=== PATIENT | male | born 1955 | race Caucasian/White ===

== ENCOUNTER → 2016-07-05 | Outpatient (CLI) | payer BC, OTHER | LOC: M LAB 14:13 | PROVIDERS: ATTEND Family Medicine | DX: E03.9 Hypothyroidism, unspecified (principal) ==

== ENCOUNTER 2017-02-02 08:45 | Outpatient (CLI) | payer BC, OTHER ==
[~2017-02-02] VITALS: Ht 185.4 cm; Wt 109.5 kg
[~2017-02-02 08:45] MED LIST: ALLO10TA PO; ASPI1TAB PO; ATOR80TA59 PO; DUTA1CAP PO; LEVO75TA4 PO; LYRI75CA PO; MULT1TAB10 PO; STOO100C PO
[2017-02-02] MEDS ORDERED: NS 1,000 ML IV ONE (09:00)
[2017-02-02] MEDS ORDERED: LIDOCAINE 2% INJ 100 MG/5 ML SDV (FOR ANES.) As Ordered ONE (09:21)
[2017-02-02] MEDS ORDERED: PROPOFOL 200 MG/20 ML VIAL As Ordered ONE (09:21)
--- NOTE | 2017-02-02 09:38 | ROOR ---
Patient Name: Brett Marquez Procedure Date: 02/02/2017 9:18 AM Date of : 1955 Age: 61 Room: [facility] Gender: Male Note Status: Finalized Procedure: Colonoscopy Indications: Screening for colorectal malignant neoplasm Providers: Woody BAILEY MD Referring MD: BAN CORONADO MD Requesting Provider: Medicines: Monitored Anesthesia Care Complications: No immediate complications. Procedure: Pre-Anesthesia Assessment: - The heart rate, respiratory rate, oxygen saturations, blood pressure, adequacy of pulmonary ventilation, and response to care were monitored throughout the procedure. The Colonoscope was introduced through the anus and advanced to the cecum, identified by appendiceal orifice and ileocecal valve. The colonoscopy was performed without difficulty. The patient tolerated the procedure well. The quality of the bowel preparation was good. Findings: The perianal and digital rectal examinations were normal. (Exam: Complete, Prep: Good or Excellent.) A segmental area of mild melanosis was found in the entire colon. The entire examined colon appeared normal on direct and retroflexion views. Impression: - (Exam: Complete, Prep: Good or Excellent.) - The entire examined colon is normal on direct and retroflexion views. - No specimens collected. Recommendation: - Repeat colonoscopy in 10 years for screening purposes. Woody Bailey MD Woody BAILEY MD 02/02/2017 9:38:19 AM This report has been signed electronically. Number of Addenda: 0 Note Initiated On: 02/02/2017 9:18 AM Estimated Blood Loss: Estimated blood loss: none.
[2017-02-02 09:56] VITALS: BP 116/80
== END 2017-02-02 10:02 | disposition home or self-care (01) ==
LOC: M OPP 08:45
PROVIDERS: ATTEND Internal Medicine Gastroenterology
DX: Z12.11 Encounter for screening for malignant neoplasm of colon (principal); K63.89 Other specified diseases of intestine; E78.5 Hyperlipidemia, unspecified; G43.909 Migraine, unspecified, not intractable, without status migrainosus; E03.9 Hypothyroidism, unspecified; M10.9 Gout, unspecified; M79.2 Neuralgia and neuritis, unspecified

== ENCOUNTER → 2018-05-16 | Outpatient (CLI) | payer BC, OTHER, MEDICARE ==
[2018-05-16 14:26] LABS: ALBUMIN 4.1 GM/DL (3.2-5.2); ALBUMIN/GLOBULIN RATIO 1.41 (1.00-1.93); ALKALINE PHOSPHATASE 80 U/L (45-117); ALT/SGPT 41 U/L (12-78); ANION GAP 5 MEQ/L (8-16); AST/SGOT 27 U/L (7-37); BILIRUBIN,TOTAL 0.6 MG/DL (0.2-1.0); BLOOD UREA NITROGEN 17 MG/DL (7-18); CALCIUM LEVEL 8.5 MG/DL (8.8-10.2); CARBON DIOXIDE LEVEL 29 MEQ/L (21-32); CHLORIDE LEVEL 108 MEQ/L (98-107); CHOLESTEROL LEVEL 153 MG/DL (<200); CHOLESTEROL RISK RATIO 2.684 (<5); CREATININE FOR GFR 0.99 MG/DL (0.70-1.30); GLOMERULAR FILTRATION RATE > 60.0 (>49); GLUCOSE, FASTING 91 MG/DL (70-100); HDL CHOLESTEROL 57 MG/DL (>40); LDL CHOLESTEROL 82 MG/DL (<100); NON-HDL-C 96 MG/DL; POTASSIUM SERUM 4.7 MEQ/L (3.5-5.1); SODIUM LEVEL 142 MEQ/L (136-145); TRIGLYCERIDES LEVEL 72 MG/DL (<150)
== END ==
LOC: M LAB 10:20
DX: E78.1 Pure hyperglyceridemia (principal); M1A.9XX0 Chronic gout, unspecified, without tophus (tophi); E03.9 Hypothyroidism, unspecified
CPT/HCPCS: 84443

== ENCOUNTER → 2018-07-12 | Outpatient (CLI) | payer MEDICARE, BC ==
--- NOTE | 2018-07-12 10:40 | REP ---
LEFT WRIST, FOUR VIEWS: HISTORY: Injury. There is no acute fracture or dislocation. There is narrowing of the radiocarpal and 1st carpal metacarpal joint space. Osteophytes are present at the 1st the carpal metacarpal joint space. The remaining joint spaces are normal in appearance. IMPRESSION: Degenerative change as described above. Electronically Signed by Tuan Vernon MD 07/12/2018 10:42 A
== END ==
LOC: M SMT 09:24
PROVIDERS: ATTEND Family Medicine
DX: M18.12 Unilateral primary osteoarthritis of first carpometacarpal joint, left hand (principal); M25.742 Osteophyte, left hand; S69.92XA Unspecified injury of left wrist, hand and finger(s), initial encounter; X58.XXXA Exposure to other specified factors, initial encounter; Y92.9 Unspecified place or not applicable
CPT/HCPCS: 17110; 73110; G0463

== ENCOUNTER 2019-03-24 12:54 | Emergency (ER) | payer MEDICARE, BC, OTHER ==
[~2019-03-24] VITALS: Ht 185.4 cm; Wt 113.1 kg
[~2019-03-24 12:54] MED LIST changes: -ASPI1TAB PO; +ASPI81TA26 PO; +MM S100C PO; -STOO100C PO
[2019-03-24] MEDS ORDERED: NS 1,000 ML IV SCH (13:15)
[2019-03-24] MEDS ORDERED: ONDANSETRON 4MG/2ML VIAL (J2405) As Ordered ONE (13:22)
[2019-03-24] MEDS ORDERED: MORPHINE 4 MG/ML 1ML VIAL/SYRINGE (J2270) As Ordered ONE (13:22)
[2019-03-24] MEDS ORDERED: ONDANSETRON 4MG/2ML VIAL (J2405) IV ONE (13:30)
[2019-03-24] MEDS ORDERED: MORPHINE 4 MG/ML 1ML VIAL/SYRINGE (J2270) IV PRN (13:30)
[2019-03-24 13:43] LABS: BASO % 0.6 % (0.0-1.0); EOS # 0.1 10^3/uL (0.0-0.5); EOS % 2.1 % (0.0-3.0); HEMATOCRIT 44.6 % (42.0-52.0); HEMOGLOBIN 15.4 g/dl (13.5-17.5); LYMPH % 32.4 % (24.0-44.0); MEAN CORPUSCULAR HGB CONC 34.5 g/dl (32.0-36.5); MEAN CORPUSCULAR VOLUME 95.5 fl (80.0-96.0); MONO # 0.6 10^3/uL (0.0-0.8); MONO % 9.1 % (0.0-5.0); NEUTROPHILS # 3.5 10^3/uL (1.5-8.5); NEUTROPHILS % 55.5 % (36.0-66.0); PLATELET COUNT, AUTOMATED 156 10^3/uL (150-450); RED BLOOD COUNT 4.67 10^6/uL (4.30-6.10); WHITE BLOOD COUNT 6.2 10^3/uL (4.0-10.0)
[2019-03-24 13:56] LABS: INR 1.15; PROTHROMBIN TIME 14.4 SECONDS (11.8-14.0)
--- NOTE | 2019-03-24 14:08 | REP ---
CT of the abdomen pelvis without IV and oral contrast for right flank pain: There are no comparisons. There are no renal calculi. There is mild right hydronephrosis and hydroureter. There is a 5 mm calculus in the mid right ureter at the L4/L5 level. There are no bladder calculi. There is no left ureteral calculus. There are no bladder calculi. The visualized lung felix are unremarkable. The unenhanced hepatic parenchyma, gallbladder, pancreas, spleen, adrenals, abdominal aorta, bowel and mesentery are unremarkable except for a 3.4 cm hypodensity medially in the right lobe of the liver, likely a cyst. Pelvis: The pelvic bowel loops are unremarkable. There is no ascites or adenopathy. The bladder is unremarkable. There is degenerative disc disease at L5 S1. Impression: There is a 5 ml calculus in the mid right ureter at the L4-5 level. There is mild right hydronephrosis. There is degenerative disc disease in the lumbar spine at L5 S1. Otherwise, negative CT of the abdomen and pelvis except for an hepatic hypodensity, likely a cyst. Electronically Signed by Jaden Houston MD 03/24/2019 01:59 P
[2019-03-24 14:12] LABS: ALBUMIN 4.2 GM/DL (3.2-5.2); BILIRUBIN,DIRECT 0.3 MG/DL (0.0-0.2); BILIRUBIN,TOTAL 0.9 MG/DL (0.2-1.0)
[2019-03-24] MEDS ORDERED: NS 1,000 ML IV ONE (14:15)
[2019-03-24] MEDS ORDERED: PERC5TAB12 PO (14:45)
[2019-03-24] MEDS ORDERED: FLOM0.4C39 PO (14:46)
[2019-03-24] MEDS ORDERED: KETOROLAC 30 MG/ML VIAL (J1885) IV ONE (15:00)
[2019-03-24] MEDS ORDERED: CIPR-249 PO (15:24)
[2019-03-24 15:30] VITALS: BP 137/94
[2019-03-24] MEDS ORDERED: CIPROFLOXACIN 500 MG TAB PO ONE (15:30)
--- NOTE | 2019-03-25 00:43 | ECGEPIP ---
[facility] - ED Test Date: 2019-03-24 Pat Name: JALIL GRANADOS Department: Room: - Gender: Male Vp Site: : 1955 Requested By: Edna Anderson Order Number: [id number] Reading MD: Woody Kelsey Measurements Intervals [place] Rate: 45 P: 42 NE: 191 QRS: -9 QRSD: 109 T: -2 QT: 449 QTc: 389 Interpretive Statements SINUS BRADYCARDIA WITH SINUS ARRHYTHMIA Comparison tracing not on file Electronically Signed on 03-25-2019 0:43:23 EDT by Woody Kelsey
== END 2019-03-24 15:48 | disposition home or self-care (01) ==
LOC: M ED 12:54
DX: N20.1 Calculus of ureter (principal); E78.5 Hyperlipidemia, unspecified; N40.0 Benign prostatic hyperplasia without lower urinary tract symptoms; M10.9 Gout, unspecified; Z79.899 Other long term (current) drug therapy; Z79.82 Long term (current) use of aspirin
CPT/HCPCS: 74176; 80047; 80076; 81001; 83605; 83690; 85025; 85610; 93005; 93041; 96361; 96374; 96375; 99285; J1885; J2270; J2405

== ENCOUNTER → 2019-08-01 | Outpatient (REF) | payer MEDICARE, BC, OTHER ==
[~2019-08-01] MED LIST changes: +CIPR-249 PO; -DUTA1CAP PO; +DUTA1CAP2 PO; +FLOM0.4C39 PO; +PERC5TAB12 PO
== END ==
LOC: M SFHCPLAZ 09:35
PROVIDERS: ATTEND Family Medicine
DX: L82.0 Inflamed seborrheic keratosis (principal)

== ENCOUNTER → 2020-01-01 | Outpatient (REF) | payer MEDICARE, OTHER ==
[2020-01-01 13:45] LABS: ALBUMIN 3.8 GM/DL (3.2-5.2); ALT/SGPT 34 U/L (12-78); BILIRUBIN,TOTAL 0.6 MG/DL (0.2-1.0); BLOOD UREA NITROGEN 15 MG/DL (7-18); CALCIUM LEVEL 8.8 MG/DL (8.8-10.2); CARBON DIOXIDE LEVEL 26 MEQ/L (21-32); CHLORIDE LEVEL 110 MEQ/L (98-107); CHOLESTEROL LEVEL 159 MG/DL (<200); CHOLESTEROL RISK RATIO 3.117 (<5); CREATININE FOR GFR 0.98 MG/DL (0.70-1.30); GLOMERULAR FILTRATION RATE > 60.0 (>49); GLUCOSE, FASTING 104 MG/DL (70-100); HDL CHOLESTEROL 51 MG/DL (>40); LDL CHOLESTEROL 85 MG/DL (<100); NON-HDL-C 108 MG/DL; POTASSIUM SERUM 4.4 MEQ/L (3.5-5.1); SODIUM LEVEL 143 MEQ/L (136-145); TOTAL PROTEIN 6.9 GM/DL (6.4-8.2); TRIGLYCERIDES LEVEL 115 MG/DL (<150)
== END ==
LOC: M PLALAB 08:06
PROVIDERS: ATTEND Family Medicine
DX: E78.1 Pure hyperglyceridemia (principal); M1A.9XX0 Chronic gout, unspecified, without tophus (tophi); E03.9 Hypothyroidism, unspecified

== ENCOUNTER → 2020-03-08 | Outpatient (CLI) | payer MEDICARE, OTHER ==
[2020-03-08 14:39] LABS: FREE T4 1.09 NG/DL (0.76-1.46); THYROID STIMULATING HORMONE 2.51 uIU/ML (0.358-3.740)
[2020-03-08 15:04] LABS: HEMOGLOBIN A1c 5.6 %
== END ==
LOC: M PLALAB 09:56
PROVIDERS: ATTEND Family Medicine
DX: R73.02 Impaired glucose tolerance (oral) (principal); E03.9 Hypothyroidism, unspecified

== ENCOUNTER → 2020-06-25 | Outpatient (CLI) | payer MEDICARE, OTHER ==
--- NOTE | 2020-06-25 15:23 | REPPI ---
INDICATION: MASS OF THE LEFT AXILLA COMPARISON: None. TECHNIQUE: PA and lateral. FINDINGS: The mediastinum and cardiac silhouette are normal. The lung felix are clear and without acute consolidation, effusion, or pneumothorax. The skeletal structures are intact and normal. IMPRESSION: No acute cardiopulmonary process. <Electronically signed by René Cruz > 06/25/20 [id number]
== END ==
LOC: M PLAIMG 14:53
PROVIDERS: ATTEND Family Medicine
DX: R22.32 Localized swelling, mass and lump, left upper limb (principal); Z23 Encounter for immunization
CPT/HCPCS: 36415; 71046; 85025; 90471; 90715; G0463

== ENCOUNTER → 2020-06-25 | Outpatient (REF) | payer MEDICARE, OTHER ==
[2020-06-25 17:40] LABS: BASO # 0.1 10^3/uL (0.0-0.2); BASO % 1.6 % (0.0-1.0); EOS # 0.2 10^3/uL (0.0-0.5); EOS % 2.9 % (0.0-3.0); HEMATOCRIT 46.4 % (42.0-52.0); HEMOGLOBIN 15.2 g/dl (13.5-17.5); LYMPH # 1.6 10^3/uL (1.5-5.0); LYMPH % 29.7 % (24.0-44.0); MEAN CORPUSCULAR HGB CONC 32.8 g/dl (32.0-36.5); MEAN CORPUSCULAR VOLUME 94.7 fl (80.0-96.0); MONO # 0.6 10^3/uL (0.0-0.8); MONO % 10.7 % (0.0-5.0); NEUTROPHILS % 54.4 % (36.0-66.0); PLATELET COUNT, AUTOMATED 181 10^3/uL (150-450); WHITE BLOOD COUNT 5.5 10^3/uL (4.0-10.0)
== END ==
LOC: M SFHCPLAZ 14:50
PROVIDERS: ATTEND Family Medicine
DX: R22.32 Localized swelling, mass and lump, left upper limb (principal)

== ENCOUNTER → 2020-07-12 | Outpatient (CLI) | payer MEDICARE, BC, OTHER ==
--- NOTE | 2020-07-12 12:58 | REP ---
INDICATION: LOCALIZED SWELLING, MASS AND LUMP, LEFT UPPER LIMB. COMPARISON: None TECHNIQUE: Ultrasonographic evaluation over a palpable left axillary mass FINDINGS: Seen scanned over the region of interest there is a 3.8 x 3.4 x 4.1 cm sized mixed echo complex appearing fluid collection. IMPRESSION: Left axillary abnormality as described above. Etiology uncertain. Consider surgical consultation. <Electronically signed by Lokesh Tanner > 07/12/20 [id number]
== END ==
LOC: M RAD 11:41
PROVIDERS: ATTEND Family Medicine
DX: R22.32 Localized swelling, mass and lump, left upper limb (principal)

== ENCOUNTER → 2020-07-26 | Outpatient (CLI) | payer MEDICARE, BC, OTHER ==
[~2020-07-26] MED LIST changes: +GASTROGRAFIN SOLUTION 30ML (Q9963) As Ordered ONE; +ISOVUE-370 76% 100ML VIAL As Ordered ONE
[2020-07-26 10:59] LABS: BLOOD UREA NITROGEN 19 MG/DL (7-18); CREATININE FOR GFR 1.09 MG/DL (0.70-1.30); GLOMERULAR FILTRATION RATE > 60.0 (>49)
--- NOTE | 2020-07-26 12:34 | REPVR ---
PROCEDURE INFORMATION: Exam: CT Neck With Contrast Exam date and time: 07/26/2020 12:11 PM Age: 65 years old Clinical indication: Condition or disease; Cancer; Other: Lymphoma TECHNIQUE: Imaging protocol: Computed tomography images of the neck with intravenous contrast. Radiation optimization: All CT scans at this facility use at least one of these dose optimization techniques: automated exposure control; mA and/or kV adjustment per patient size (includes targeted exams where dose is matched to clinical indication); or iterative reconstruction. Contrast material: ISOVUE 370; Contrast volume: 100 ml; Contrast route: INTRAVENOUS (IV); COMPARISON: No relevant prior studies available. FINDINGS: Nasopharynx: Unremarkable. Oropharynx: Unremarkable. No significant tonsillar enlargement. Hypopharynx: Unremarkable. Larynx: Unremarkable. Normal epiglottis. Retropharyngeal space: Unremarkable. Submandibular/Parotid glands: Normal. Glands are normal in size. Thyroid: There is a 2 cm hypodense right thyroid lobe nodule. Lymph nodes: Unremarkable. No lymphadenopathy. Trachea: Visualized trachea is unremarkable. Lungs: Unremarkable as visualized. Bones/joints: There is degenerative disc disease and spondylosis at C5/6 and C6/7. There is multilevel facet hypertrophy.. Soft tissues: There is diffuse expansion of the left pectoralis musculature, with loss of tissue planes, incompletely imaged. IMPRESSION: Diffuse expansion of the left pectoralis musculature, with loss of tissue planes, incompletely imaged. This may reflect known lymphoma. Clinical correlation is recommended. COMMENTS: Consistent with the [employer]'s Incidental Findings Committee white paper (J Am Lily Radiol 2015): In patients aged 35 years and older with an incidental thyroid nodule equal to or greater than 1.[address], MRI or extrathyroidal US, further evaluation with dedicated thyroid US is recommended for patients with normal life expectancy and without comorbidities. For smaller nodules without suspicious features, no further evaluation or follow up is recommended. Electronically signed by: Anabella Martinez On 07/26/2020 12:34:41 PM
--- NOTE | 2020-07-26 12:46 | REP ---
INDICATION: LYMPHOMA. Chest wall mass. Probable neoplasm. COMPARISON: Comparison sonography 12 July 2020. No comparison chest CT.. TECHNIQUE: 100 mL of intravenous Isovue 370 is administered and helical scanning is acquired. 3 mm axial images re-formatted. Coronal and sagittal MPR images are provided. FINDINGS: Preliminary digital social service director radiograph is unremarkable. The lung felix are free of infiltrate, mass, pleural effusion or atelectasis. There is good opacification of the thoracic aorta and there is no evidence of aneurysm or dissection. The pulmonary arterial tree is unremarkable. There is no evidence of pleural or pericardial effusion. A small sliding-type hiatal hernia is noted. Fatty infiltration of the liver is visualized. There is a large infiltrative process in the left pectoralis muscle which is quite swollen. There is confluent left axillary lymphadenopathy. This is quite bulky. The confluent adenopathy measures up to 14 cm in oblique craniocaudal span by 6-7 cm anterior to posterior by 9.5 cm right to left. Similar dimensions are noted in the infiltrated left pectoralis major and minor muscles. The subclavian artery courses through the superior margin of the confluent adenopathy. The subclavian vein is seen to be narrowed by the superior portion of the adenopathy. There is subcutaneous edema along the left lateral chest wall extending nearly to the diaphragm. No bony destructive lesion is seen. No apical lung neoplasm is appreciated. There is no evidence of right axillary or supraclavicular adenopathy. No upper abdominal adenopathy is seen. There is a 1.4 cm nodule in the right lobe of the thyroid gland. IMPRESSION: Bulky infiltrative confluent adenopathy in the left axilla. This process appears to infiltrate and involve the left pectoralis musculature. There is a lymphedema along the left lateral chest wall. Lymphoproliferative disease must be suspected versus other malignancy. 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 No other area of adenopathy is seen. A small sliding hiatal hernia is noted and fatty infiltration of the liver is seen. There is a low-density lesion in the right thyroid lobe consistent with a thyroid nodule, 1.4 cm. Findings were reviewed at the workstation with the referring surgeon Dr. Jennings. <Electronically signed by Abhay Lozoya > 07/26/20 [id number]
--- NOTE | 2020-07-26 13:09 | REP ---
INDICATION: LYMPHOMA. COMPARISON: Comparison CT study 24 March 2019.. TECHNIQUE: Contrast dose: 100 ML of Isovue [address] technique: Helical scanning is acquired and overlapping 1.5 mm and contiguous 3 mm axial images are reformatted. In addition, maximum intensity projection and multiplanar re-formation images are generated in sagittal and coronal imaging projections. FINDINGS: Digital preliminary salvage cutter radiograph demonstrates an unremarkable bowel gas pattern. There is considerable subcutaneous edema along the left flank in the extra abdominal soft tissues. No christopher fluid collection or focal mass lesion is seen. There is some dermal thickening. There is mild diffuse fatty infiltration of the liver. A small sliding-type hiatal hernia is seen. There is a cyst in the right lobe of the liver measuring 4.3 cm in greatest diameter. No hepatic mass lesion is observed. Normal adrenal glands are seen. The kidneys enhance symmetrically. There is focal scarring at the lower pole the right kidney with a small 3 mm calculus in the lower pole collecting system at the level of the focal scarring. No hydronephrosis is seen. No other intrarenal calculus is observed. No retroperitoneal mass or adenopathy is seen. There is left colonic diverticulosis without CT evidence of diverticulitis. No abdominal wall defect is seen. No gastrointestinal obstructive lesion is seen. Prostate, seminal vesicles, and urinary bladder are unremarkable. Normal appendix is seen. IMPRESSION: No and evidence of intrapelvic or intra-abdominal mass or adenopathy. Mild fatty infiltration of the liver. The stable a simple cyst right lobe of the liver 4.3 cm. There is extra thoracic and extra abdominal soft tissue edema along the left flank. Small hiatal hernia. <Electronically signed by Abhay Lozoya > 07/26/20 [id number]
== END ==
LOC: M RAD 09:50
PROVIDERS: ATTEND Surgery
DX: K76.0 Fatty (change of) liver, not elsewhere classified (principal); K76.89 Other specified diseases of liver; K44.0 Diaphragmatic hernia with obstruction, without gangrene; D48.1 Neoplasm of uncertain behavior of connective and other soft tissue; E04.1 Nontoxic single thyroid nodule
CPT/HCPCS: 36415; 70491; 71260; 74178; 82565; 84520; Q9963; Q9967

== ENCOUNTER → 2020-07-27 | Outpatient (CLI) | payer MEDICARE, BC, OTHER ==
[~2020-07-27] MED LIST changes: -GASTROGRAFIN SOLUTION 30ML (Q9963) As Ordered ONE; -ISOVUE-370 76% 100ML VIAL As Ordered ONE; +LIDOCAINE 1% MDV 20ML VIAL As Ordered ONE; +SODIUM BICARBONATE 8.4% INJ 50MEQ 50 ML VIAL As Ordered ONE
[2020-07-27 14:20] VITALS: BP 143/83
--- NOTE | 2020-07-27 17:13 | REP ---
INDICATION: NEOPLASM OF UNCERTAIN BEHAVIOR OF LEFT BREAST. COMPARISON: None. TECHNIQUE: The procedure was performed by Samaria Shi [facility], under the direct supervision of Dr. Lozoya. The risks and benefits of the procedure were explained to the patient and an informed consent was obtained both verbally and written. Directly prior to the start of the procedure a formal time-out was completed in the procedure room. FINDINGS: Using ultrasound guidance the left axillary/chest lymph node was localized. The skin was prepped and draped in a sterile fashion. Seventeen mL of buffered lidocaine was used as a local anesthetic. Using ultrasound guidance a 17/18 gauge coaxial needle biopsy system was inserted and advanced into the left axillary/chest lymph node. Eight core biopsy specimens were obtained. Four specimens were sent to our lab here, and remaining 4 were sent out in RPMI solution, for further testing. The patient tolerated the procedure well and there were no immediate complications. After the appropriate amount of monitored convalescence the patient was discharged from the department. IMPRESSION: 1. Ultrasound-guided left axillary/chest lymph node biopsy. <Electronically signed by Samaria Shi > 07/27/20 [id number] <Electronically signed by Abhay Lozoya > 07/27/20 [id number]
== END ==
LOC: M IRPRO 12:44
PROVIDERS: ATTEND Surgery
DX: C83.30 Diffuse large B-cell lymphoma, unspecified site (principal)

== ENCOUNTER 2020-08-13 08:47 | Outpatient (CLI) | payer MEDICARE, BC, OTHER ==
[~2020-08-13] VITALS: Ht 182.9 cm; Wt 125.0 kg
[~2020-08-13 08:47] MED LIST changes: -LIDOCAINE 1% MDV 20ML VIAL As Ordered ONE; -SODIUM BICARBONATE 8.4% INJ 50MEQ 50 ML VIAL As Ordered ONE
[2020-08-13] MEDS ORDERED: PEGFILGRASTIM 6 MG/0.6ML SYR (NEULASTA) (J2505 PER 6MG) SC ONE (09:00)
[2020-08-13 09:22] VITALS: BP 115/85
[2020-08-13 09:29] VITALS: BP 132/74
== END 2020-08-13 09:45 | disposition home or self-care (01) ==
LOC: M INFU 08:47
PROVIDERS: ATTEND Nurse Practitioner
DX: Z51.11 Encounter for antineoplastic chemotherapy (principal); C83.30 Diffuse large B-cell lymphoma, unspecified site
CPT/HCPCS: 96372; J2505

== ENCOUNTER → 2020-08-16 | Outpatient (CLI) | payer MEDICARE, BC, OTHER ==
[2020-08-16 13:24] LABS: BASO % 1.1 % (0.0-1.0); EOS # 0.1 10^3/uL (0.0-0.5); EOS % 7.6 % (0.0-3.0); HEMATOCRIT 41.8 % (42.0-52.0); HEMOGLOBIN 14.2 g/dl (13.5-17.5); LYMPH # 0.5 10^3/uL (1.5-5.0); LYMPH % 51.1 % (24.0-44.0); MEAN CORPUSCULAR VOLUME 91.3 fl (80.0-96.0); MONO # 0.1 10^3/uL (0.0-0.8); MONO % 5.4 % (2.0-8.0); RED BLOOD COUNT 4.58 10^6/uL (4.30-6.10)
[2020-08-16 13:48] LABS: NEUTROPHILS # 0.2 10^3/uL (1.5-8.5); PLATELET COUNT, AUTOMATED 66 10^3/uL (150-450); WHITE BLOOD COUNT 0.9 10^3/uL (4.0-10.0)
== END ==
LOC: M LAB 11:53
PROVIDERS: ATTEND Nurse Practitioner
DX: Z01.818 Encounter for other preprocedural examination (principal); C83.34 Diffuse large B-cell lymphoma, lymph nodes of axilla and upper limb; Z20.822 Contact with and (suspected) exposure to COVID-19
CPT/HCPCS: 36415; 85025; 85049; 85055; U0003

== ENCOUNTER → 2020-08-16 | Outpatient (CLI) | payer MEDICARE, BC, OTHER | LOC: M LABSMTC 09:33 | PROVIDERS: ATTEND Internal Medicine Hematology & Oncology | DX: Z01.818 Encounter for other preprocedural examination (principal); C83.34 Diffuse large B-cell lymphoma, lymph nodes of axilla and upper limb; Z20.822 Contact with and (suspected) exposure to COVID-19 ==

== ENCOUNTER → 2020-08-19 | Outpatient (CLI) | payer MEDICARE, BC, OTHER ==
[2020-08-19 10:21] LABS: HEMATOCRIT 40.3 % (42.0-52.0); HEMOGLOBIN 13.8 g/dl (13.5-17.5); MEAN CORPUSCULAR HGB CONC 34.2 g/dl (32.0-36.5); MEAN CORPUSCULAR VOLUME 90.6 fl (80.0-96.0); RED BLOOD COUNT 4.45 10^6/uL (4.30-6.10)
[2020-08-19 10:24] LABS: PLATELET COUNT, AUTOMATED 89 10^3/uL (150-450)
[2020-08-19 10:52] LABS: ATYPICAL LYMPH 7 % (0-5); BASOPHILS 2 % (0-1); EOSINOPHILS 3 % (0-3); LYMPHOCYTES 13 % (16-44); METAMYELOCYTES 5 % (0-0); MONOCYTES 7 % (0-5); MYELOCYTES 1 % (0-0); NEUTROPHILS 43 % (28-66); PLATELET ESTIMATE DECREASED (NORMAL); POLYCHROMASIA 1+; TOXIC GRANULATION 2+
[2020-08-19 10:53] LABS: ANISOCYTOSIS 2+; GIANT PLATELETS 1+; POIKILOCYTOSIS 1+; SMUDGE CELLS 1+
== END ==
LOC: M LAB 09:51
PROVIDERS: ATTEND Nurse Practitioner
DX: C83.30 Diffuse large B-cell lymphoma, unspecified site (principal)

== ENCOUNTER → 2020-08-23 | Outpatient (CLI) | payer MEDICARE, BC, OTHER ==
[2020-08-23 09:34] LABS: HEMATOCRIT 39.1 % (42.0-52.0); HEMOGLOBIN 13.1 g/dl (13.5-17.5); MEAN CORPUSCULAR HEMOGLOBIN 31.6 pg (27.0-33.0); MEAN CORPUSCULAR HGB CONC 33.5 g/dl (32.0-36.5); MEAN CORPUSCULAR VOLUME 94.4 fl (80.0-96.0); PLATELET COUNT, AUTOMATED 210 10^3/uL (150-450); RED BLOOD COUNT 4.14 10^6/uL (4.30-6.10); WHITE BLOOD COUNT 14.2 10^3/uL (4.0-10.0)
[2020-08-23 10:00] LABS: ATYPICAL LYMPH 9 % (0-5); EOSINOPHILS 6 % (0-3); LYMPHOCYTES 20 % (16-44); METAMYELOCYTES 1 % (0-0); MONOCYTES 2 % (0-5); MYELOCYTES 2 % (0-0); NEUTROPHILS 52 % (28-66)
[2020-08-23 10:02] LABS: ANISOCYTOSIS 1+; PLATELET ESTIMATE NORMAL (NORMAL)
== END ==
LOC: M LAB 08:40
PROVIDERS: ATTEND Nurse Practitioner
DX: C85.10 Unspecified B-cell lymphoma, unspecified site (principal)

== ENCOUNTER 2020-09-02 15:44 | Outpatient (CLI) | payer MEDICARE, BC, OTHER ==
[~2020-09-02 15:44] MED LIST changes: +PEGFILGRASTIM 6 MG/0.6ML SYR (NEULASTA) (J2505 PER 6MG) SC ONE
[2020-09-02 15:50] VITALS: BP 133/80
== END 2020-09-02 16:00 | disposition home or self-care (01) ==
LOC: M INFU 15:44
PROVIDERS: ATTEND Nurse Practitioner
DX: C83.30 Diffuse large B-cell lymphoma, unspecified site (principal); Z91.89 Other specified personal risk factors, not elsewhere classified
CPT/HCPCS: 96372; J2505

== ENCOUNTER → 2020-09-06 | Outpatient (CLI) | payer MEDICARE, BC, OTHER ==
[~2020-09-06] MED LIST changes: -PEGFILGRASTIM 6 MG/0.6ML SYR (NEULASTA) (J2505 PER 6MG) SC ONE
[2020-09-06 09:22] LABS: HEMATOCRIT 39.8 % (42.0-52.0); HEMOGLOBIN 13.8 g/dl (13.5-17.5); MEAN CORPUSCULAR HEMOGLOBIN 31.7 pg (27.0-33.0); MEAN CORPUSCULAR HGB CONC 34.7 g/dl (32.0-36.5); MEAN CORPUSCULAR VOLUME 91.5 fl (80.0-96.0); PLATELET COUNT, AUTOMATED 181 10^3/uL (150-450); RED BLOOD COUNT 4.35 10^6/uL (4.30-6.10); WHITE BLOOD COUNT 5.9 10^3/uL (4.0-10.0)
[2020-09-06 09:43] LABS: ATYPICAL LYMPH 4 % (0-5); EOSINOPHILS 2 % (0-3); LYMPHOCYTES 14 % (16-44); MONOCYTES 5 % (0-5); NEUTROPHILS 75 % (28-66); SMUDGE CELLS 2+
[2020-09-06 09:46] LABS: PLATELET ESTIMATE DECREASED (NORMAL)
== END ==
LOC: M LAB 08:49
PROVIDERS: ATTEND Nurse Practitioner
DX: C83.30 Diffuse large B-cell lymphoma, unspecified site (principal)

== ENCOUNTER → 2020-09-09 | Outpatient (CLI) | payer MEDICARE, BC, OTHER ==
[2020-09-09 09:58] LABS: HEMATOCRIT 37.9 % (42.0-52.0); MEAN CORPUSCULAR HEMOGLOBIN 31.9 pg (27.0-33.0); MEAN CORPUSCULAR HGB CONC 34.3 g/dl (32.0-36.5); MEAN CORPUSCULAR VOLUME 92.9 fl (80.0-96.0); PLATELET COUNT, AUTOMATED 120 10^3/uL (150-450); RED BLOOD COUNT 4.08 10^6/uL (4.30-6.10); WHITE BLOOD COUNT 4.1 10^3/uL (4.0-10.0)
[2020-09-09 10:27] LABS: ATYPICAL LYMPH 6 % (0-5); EOSINOPHILS 7 % (0-3); LYMPHOCYTES 30 % (16-44); MONOCYTES 6 % (0-5); NEUTROPHILS 46 % (28-66)
[2020-09-09 10:29] LABS: ANISOCYTOSIS 1+; PLATELET ESTIMATE DECREASED (NORMAL)
== END ==
LOC: M LAB 09:13
PROVIDERS: ATTEND Nurse Practitioner
DX: C83.30 Diffuse large B-cell lymphoma, unspecified site (principal)

== ENCOUNTER → 2020-09-13 | Outpatient (CLI) | payer MEDICARE, BC, OTHER ==
[2020-09-13 11:21] LABS: HEMATOCRIT 37.2 % (42.0-52.0); HEMOGLOBIN 12.3 g/dl (13.5-17.5); MEAN CORPUSCULAR HEMOGLOBIN 31.8 pg (27.0-33.0); MEAN CORPUSCULAR HGB CONC 33.1 g/dl (32.0-36.5); MEAN CORPUSCULAR VOLUME 96.1 fl (80.0-96.0); PLATELET COUNT, AUTOMATED 139 10^3/uL (150-450); RED BLOOD COUNT 3.87 10^6/uL (4.30-6.10); WHITE BLOOD COUNT 12.5 10^3/uL (4.0-10.0)
[2020-09-13 11:41] LABS: ATYPICAL LYMPH 1 % (0-5); BASOPHILS 1 % (0-1); EOSINOPHILS 4 % (0-3); LYMPHOCYTES 14 % (16-44); METAMYELOCYTES 1 % (0-0); MONOCYTES 4 % (0-5); NEUTROPHILS 70 % (28-66)
[2020-09-13 11:42] LABS: PLATELET ESTIMATE NORMAL (NORMAL)
== END ==
LOC: M LAB 10:56
PROVIDERS: ATTEND Nurse Practitioner
DX: C83.30 Diffuse large B-cell lymphoma, unspecified site (principal)

== ENCOUNTER 2020-09-23 12:56 | Outpatient (CLI) | payer MEDICARE, BC, OTHER ==
[2020-09-23 13:00] VITALS: BP 125/72
[2020-09-23] MEDS ORDERED: PEGFILGRASTIM 6 MG/0.6ML SYR (NEULASTA) (J2505 PER 6MG) SC ONE (16:00)
== END 2020-09-23 13:20 | disposition home or self-care (01) ==
LOC: M INFU 12:56
PROVIDERS: ATTEND Nurse Practitioner
DX: C85.10 Unspecified B-cell lymphoma, unspecified site (principal); Z91.89 Other specified personal risk factors, not elsewhere classified
CPT/HCPCS: 96372; J2505

== ENCOUNTER → 2020-09-27 | Outpatient (CLI) | payer MEDICARE, BC, OTHER ==
[2020-09-27 12:09] LABS: HEMATOCRIT 39.3 % (42.0-52.0); HEMOGLOBIN 13.2 g/dl (13.5-17.5); MEAN CORPUSCULAR HEMOGLOBIN 31.7 pg (27.0-33.0); MEAN CORPUSCULAR HGB CONC 33.6 g/dl (32.0-36.5); MEAN CORPUSCULAR VOLUME 94.5 fl (80.0-96.0); RED BLOOD COUNT 4.16 10^6/uL (4.30-6.10); WHITE BLOOD COUNT 1.8 10^3/uL (4.0-10.0)
[2020-09-27 12:14] LABS: PLATELET COUNT, AUTOMATED 85 10^3/uL (150-450)
[2020-09-27 12:35] LABS: ANISOCYTOSIS 2+; ATYPICAL LYMPH 6 % (0-5); BASOPHILS 1 % (0-1); EOSINOPHILS 2 % (0-3); LYMPHOCYTES 29 % (16-44); MONOCYTES 5 % (0-5); NEUTROPHILS 56 % (28-66); PLATELET CLUMPS SMALL AMT; PLATELET ESTIMATE DECREASED (NORMAL)
== END ==
LOC: M LAB 11:17
PROVIDERS: ATTEND Nurse Practitioner
DX: C83.30 Diffuse large B-cell lymphoma, unspecified site (principal)

== ENCOUNTER → 2020-09-30 | Outpatient (CLI) | payer MEDICARE, BC, OTHER ==
[2020-09-30 12:23] LABS: HEMATOCRIT 35.2 % (42.0-52.0); MEAN CORPUSCULAR HEMOGLOBIN 31.8 pg (27.0-33.0); MEAN CORPUSCULAR HGB CONC 34.1 g/dl (32.0-36.5); MEAN CORPUSCULAR VOLUME 93.4 fl (80.0-96.0); RED BLOOD COUNT 3.77 10^6/uL (4.30-6.10); WHITE BLOOD COUNT 1.5 10^3/uL (4.0-10.0)
[2020-09-30 12:24] LABS: PLATELET COUNT, AUTOMATED 74 10^3/uL (150-450)
[2020-09-30 12:50] LABS: ATYPICAL LYMPH 2 % (0-5); BASOPHILS 8 % (0-1); EOSINOPHILS 2 % (0-3); LYMPHOCYTES 32 % (16-44); MONOCYTES 10 % (0-5); NEUTROPHILS 22 % (28-66)
[2020-09-30 12:51] LABS: ANISOCYTOSIS 1+; PLATELET ESTIMATE DECREASED (NORMAL)
== END ==
LOC: M LAB 11:40
PROVIDERS: ATTEND Nurse Practitioner
DX: C83.30 Diffuse large B-cell lymphoma, unspecified site (principal)

== ENCOUNTER → 2020-10-04 | Outpatient (CLI) | payer MEDICARE, BC, OTHER ==
[2020-10-04 11:01] LABS: HEMATOCRIT 31.9 % (42.0-52.0); HEMOGLOBIN 10.5 g/dl (13.5-17.5); MEAN CORPUSCULAR HEMOGLOBIN 32.9 pg (27.0-33.0); MEAN CORPUSCULAR HGB CONC 32.9 g/dl (32.0-36.5); PLATELET COUNT, AUTOMATED 181 10^3/uL (150-450); RED BLOOD COUNT 3.19 10^6/uL (4.30-6.10); WHITE BLOOD COUNT 9.5 10^3/uL (4.0-10.0)
[2020-10-04 11:25] LABS: ATYPICAL LYMPH 5 % (0-5); BASOPHILS 1 % (0-1); LYMPHOCYTES 12 % (16-44); METAMYELOCYTES 2 % (0-0); MONOCYTES 11 % (0-5); NEUTROPHILS 62 % (28-66); PLATELET ESTIMATE NORMAL (NORMAL); POIKILOCYTOSIS 2+
[2020-10-04 11:26] LABS: ANISOCYTOSIS 2+; HYPOCHROMASIA 1+
== END ==
LOC: M LAB 10:11
PROVIDERS: ATTEND Nurse Practitioner
DX: C83.30 Diffuse large B-cell lymphoma, unspecified site (principal)

== ENCOUNTER 2020-10-14 13:12 | Outpatient (CLI) | payer MEDICARE, BC, OTHER ==
[~2020-10-14] VITALS: Ht 182.9 cm; Wt 111.4 kg
[2020-10-14 13:29] VITALS: BP 133/76
[2020-10-14] MEDS ORDERED: PEGFILGRASTIM 6 MG/0.6ML SYR (NEULASTA) (J2505 PER 6MG) SC ONE (13:30)
[2020-10-14 13:55] VITALS: BP 127/76
== END 2020-10-14 13:55 | disposition home or self-care (01) ==
LOC: M INFU 13:12
PROVIDERS: ATTEND Nurse Practitioner
DX: C85.10 Unspecified B-cell lymphoma, unspecified site (principal); Z91.89 Other specified personal risk factors, not elsewhere classified
CPT/HCPCS: 96372; J2505

== ENCOUNTER → 2020-10-18 | Outpatient (CLI) | payer MEDICARE, BC, OTHER ==
[2020-10-18 13:30] LABS: HEMATOCRIT 34.2 % (42.0-52.0); HEMOGLOBIN 11.1 g/dl (13.5-17.5); MEAN CORPUSCULAR HEMOGLOBIN 32.8 pg (27.0-33.0); MEAN CORPUSCULAR HGB CONC 32.5 g/dl (32.0-36.5); MEAN CORPUSCULAR VOLUME 101.2 fl (80.0-96.0); RED BLOOD COUNT 3.38 10^6/uL (4.30-6.10); WHITE BLOOD COUNT 1.7 10^3/uL (4.0-10.0)
[2020-10-18 13:48] LABS: PLATELET COUNT, AUTOMATED 74 10^3/uL (150-450)
[2020-10-18 13:57] LABS: BASOPHILS 1 % (0-1); EOSINOPHILS 1 % (0-3); LYMPHOCYTES 19 % (16-44); MONOCYTES 1 % (0-5); NEUTROPHILS 77 % (28-66)
[2020-10-18 13:58] LABS: PLATELET ESTIMATE DECREASED (NORMAL)
[2020-10-18 13:59] LABS: ANISOCYTOSIS 2+; POIKILOCYTOSIS 2+
== END ==
LOC: M LAB 12:50
PROVIDERS: ATTEND Nurse Practitioner
DX: C83.30 Diffuse large B-cell lymphoma, unspecified site (principal)

== ENCOUNTER → 2020-10-21 | Outpatient (CLI) | payer MEDICARE, BC, OTHER ==
[2020-10-21 12:24] LABS: HEMATOCRIT 29.4 % (42.0-52.0); RED BLOOD COUNT 3.03 10^6/uL (4.30-6.10); WHITE BLOOD COUNT 2.3 10^3/uL (4.0-10.0)
[2020-10-21 12:42] LABS: PLATELET COUNT, AUTOMATED 51 10^3/uL (150-450)
[2020-10-21 13:20] LABS: BASOPHILS 3 % (0-1); EOSINOPHILS 2 % (0-3); LYMPHOCYTES 24 % (16-44); METAMYELOCYTES 3 % (0-0); MONOCYTES 14 % (0-5); NEUTROPHILS 46 % (28-66); PLATELET ESTIMATE MARKED DECREASE (NORMAL); POIKILOCYTOSIS 1+; TEAR DROP CELLS 1+
[2020-10-21 13:21] LABS: ANISOCYTOSIS 1+; DOHLE BODIES 1+
== END ==
LOC: M LAB 11:58
PROVIDERS: ATTEND Nurse Practitioner
DX: C83.30 Diffuse large B-cell lymphoma, unspecified site (principal)

== ENCOUNTER → 2020-10-25 | Outpatient (CLI) | payer MEDICARE, BC, OTHER ==
[2020-10-25 10:38] LABS: HEMATOCRIT 27.8 % (42.0-52.0); HEMOGLOBIN 9.1 g/dl (13.5-17.5); MEAN CORPUSCULAR HEMOGLOBIN 33.3 pg (27.0-33.0); MEAN CORPUSCULAR HGB CONC 32.7 g/dl (32.0-36.5); MEAN CORPUSCULAR VOLUME 101.8 fl (80.0-96.0); PLATELET COUNT, AUTOMATED 156 10^3/uL (150-450); RED BLOOD COUNT 2.73 10^6/uL (4.30-6.10); WHITE BLOOD COUNT 8.7 10^3/uL (4.0-10.0)
[2020-10-25 10:59] LABS: ATYPICAL LYMPH 2 % (0-5); EOSINOPHILS 1 % (0-3); LYMPHOCYTES 9 % (16-44); METAMYELOCYTES 2 % (0-0); MONOCYTES 6 % (0-5); MYELOCYTES 1 % (0-0); NEUTROPHILS 63 % (28-66)
[2020-10-25 11:00] LABS: ANISOCYTOSIS 2+; MICROCYTOSIS 1+; PLATELET ESTIMATE NORMAL (NORMAL); POLYCHROMASIA 1+
== END ==
LOC: M LAB 09:56
PROVIDERS: ATTEND Nurse Practitioner
DX: C83.30 Diffuse large B-cell lymphoma, unspecified site (principal)

== ENCOUNTER 2020-11-04 07:40 | Outpatient (CLI) | payer MEDICARE, BC, OTHER ==
[~2020-11-04] VITALS: Ht 182.9 cm; Wt 111.4 kg
[2020-11-04 07:51] VITALS: BP 131/75
[2020-11-04] MEDS ORDERED: PEGFILGRASTIM 6 MG/0.6ML SYR (NEULASTA) (J2505 PER 6MG) SC ONE (08:00)
== END 2020-11-04 08:00 | disposition home or self-care (01) ==
LOC: M INFU 07:40
PROVIDERS: ATTEND Nurse Practitioner
DX: C85.10 Unspecified B-cell lymphoma, unspecified site (principal); Z91.89 Other specified personal risk factors, not elsewhere classified
CPT/HCPCS: 96372; J2505

== ENCOUNTER → 2020-11-08 | Outpatient (CLI) | payer MEDICARE, BC, OTHER ==
[2020-11-08 08:53] LABS: BASO % 2.4 % (0.0-1.0); EOS % 2.4 % (0.0-3.0); HEMATOCRIT 29.9 % (42.0-52.0); HEMOGLOBIN 9.8 g/dl (13.5-17.5); LYMPH # 0.2 10^3/uL (1.5-5.0); LYMPH % 41.5 % (24.0-44.0); MEAN CORPUSCULAR HEMOGLOBIN 33.9 pg (27.0-33.0); MEAN CORPUSCULAR HGB CONC 32.8 g/dl (32.0-36.5); MEAN CORPUSCULAR VOLUME 103.5 fl (80.0-96.0); MONO % 4.9 % (2.0-8.0); NEUTROPHILS % 46.4 % (36.0-66.0); RED BLOOD COUNT 2.89 10^6/uL (4.30-6.10)
[2020-11-08 08:54] LABS: NEUTROPHILS # 0.2 10^3/uL (1.5-8.5); PLATELET COUNT, AUTOMATED 45 10^3/uL (150-450); WHITE BLOOD COUNT 0.4 10^3/uL (4.0-10.0)
== END ==
LOC: M LAB 08:11
PROVIDERS: ATTEND Nurse Practitioner
DX: C85.10 Unspecified B-cell lymphoma, unspecified site (principal)

== ENCOUNTER → 2020-11-11 | Outpatient (CLI) | payer MEDICARE, BC, OTHER ==
[2020-11-11 12:27] LABS: BASO % 1.8 % (0.0-1.0); EOS % 1.8 % (0.0-3.0); HEMATOCRIT 24.6 % (42.0-52.0); HEMOGLOBIN 8.5 g/dl (13.5-17.5); LYMPH # 0.2 10^3/uL (1.5-5.0); LYMPH % 39.3 % (24.0-44.0); MEAN CORPUSCULAR HEMOGLOBIN 33.5 pg (27.0-33.0); MEAN CORPUSCULAR HGB CONC 34.6 g/dl (32.0-36.5); MEAN CORPUSCULAR VOLUME 96.9 fl (80.0-96.0); MONO # 0.1 10^3/uL (0.0-0.8); MONO % 12.5 % (2.0-8.0); NEUTROPHILS % 44.6 % (36.0-66.0); RED BLOOD COUNT 2.54 10^6/uL (4.30-6.10)
[2020-11-11 12:50] LABS: PLATELET COUNT, AUTOMATED 20 10^3/uL (150-450); WHITE BLOOD COUNT 0.6 10^3/uL (4.0-10.0)
[2020-11-11 12:51] LABS: NEUTROPHILS # 0.3 10^3/uL (1.5-8.5)
== END ==
LOC: M LAB 11:48
PROVIDERS: ATTEND Nurse Practitioner
DX: C85.10 Unspecified B-cell lymphoma, unspecified site (principal)

== ENCOUNTER → 2020-11-12 | Outpatient (CLI) | payer MEDICARE, BC, OTHER ==
[2020-11-12 14:04] LABS: HEMATOCRIT 22.8 % (42.0-52.0); HEMOGLOBIN 7.8 g/dl (13.5-17.5); MEAN CORPUSCULAR HEMOGLOBIN 33.5 pg (27.0-33.0); MEAN CORPUSCULAR HGB CONC 34.2 g/dl (32.0-36.5); MEAN CORPUSCULAR VOLUME 97.9 fl (80.0-96.0); RED BLOOD COUNT 2.33 10^6/uL (4.30-6.10); WHITE BLOOD COUNT 1.3 10^3/uL (4.0-10.0)
[2020-11-12 14:39] LABS: PLATELET COUNT, AUTOMATED 26 10^3/uL (150-450)
[2020-11-12 14:45] LABS: BASOPHILS 2 % (0-1); EOSINOPHILS 1 % (0-3); LYMPHOCYTES 20 % (16-44); METAMYELOCYTES 1 % (0-0); MONOCYTES 8 % (0-5); NEUTROPHILS 68 % (28-66)
[2020-11-12 14:46] LABS: PLATELET ESTIMATE MARKED DECREASE (NORMAL); POIKILOCYTOSIS 1+; TEAR DROP CELLS 1+
== END ==
LOC: M LAB 13:19
PROVIDERS: ATTEND Nurse Practitioner
DX: C85.10 Unspecified B-cell lymphoma, unspecified site (principal)

== ENCOUNTER → 2020-11-16 | Outpatient (CLI) | payer MEDICARE, BC, OTHER ==
[2020-11-16 13:34] LABS: HEMATOCRIT 23.1 % (42.0-52.0); HEMOGLOBIN 7.5 g/dl (13.5-17.5); MEAN CORPUSCULAR HEMOGLOBIN 33.6 pg (27.0-33.0); MEAN CORPUSCULAR HGB CONC 32.5 g/dl (32.0-36.5); MEAN CORPUSCULAR VOLUME 103.6 fl (80.0-96.0); PLATELET COUNT, AUTOMATED 115 10^3/uL (150-450); RED BLOOD COUNT 2.23 10^6/uL (4.30-6.10); WHITE BLOOD COUNT 6.8 10^3/uL (4.0-10.0)
[2020-11-16 13:58] LABS: ANISOCYTOSIS 1+; BASOPHILS 1 % (0-1); LYMPHOCYTES 5 % (16-44); METAMYELOCYTES 5 % (0-0); MONOCYTES 11 % (0-5); MYELOCYTES 2 % (0-0); NEUTROPHILS 76 % (28-66); OVALOCYTES 1+; PLATELET ESTIMATE DECREASED (NORMAL)
[2020-11-16 14:00] LABS: POIKILOCYTOSIS 1+; TEAR DROP CELLS 1+
== END ==
LOC: M LAB 12:01
PROVIDERS: ATTEND Nurse Practitioner
DX: C85.10 Unspecified B-cell lymphoma, unspecified site (principal)

== ENCOUNTER 2020-11-25 14:59 | Outpatient (CLI) | payer MEDICARE, BC, OTHER ==
[~2020-11-25] VITALS: Ht 182.9 cm; Wt 111.6 kg
[2020-11-25] MEDS ORDERED: PEGFILGRASTIM 6 MG/0.6ML SYR (NEULASTA) (J2505 PER 6MG) SC ONE (15:00)
[2020-11-25 15:28] VITALS: BP 120/71
== END 2020-11-25 15:30 | disposition home or self-care (01) ==
LOC: M INFU 14:59
PROVIDERS: ATTEND Nurse Practitioner
DX: Z51.11 Encounter for antineoplastic chemotherapy (principal); C85.10 Unspecified B-cell lymphoma, unspecified site
CPT/HCPCS: 96372; J2505

== ENCOUNTER → 2020-11-26 | Outpatient (CLI) | payer MEDICARE, BC, OTHER ==
[2020-11-26 09:33] LABS: HEMATOCRIT 26.6 % (42.0-52.0); HEMOGLOBIN 8.6 g/dl (13.5-17.5); MEAN CORPUSCULAR HEMOGLOBIN 31.5 pg (27.0-33.0); MEAN CORPUSCULAR HGB CONC 32.3 g/dl (32.0-36.5); MEAN CORPUSCULAR VOLUME 97.4 fl (80.0-96.0); PLATELET COUNT, AUTOMATED 122 10^3/uL (150-450); RED BLOOD COUNT 2.73 10^6/uL (4.30-6.10); WHITE BLOOD COUNT 24.2 10^3/uL (4.0-10.0)
[2020-11-26 10:15] LABS: HYPOCHROMASIA 1+; NEUTROPHILS 93 % (28-66); OVALOCYTES 1+; POIKILOCYTOSIS 2+; SCHISTOCYTES 1+; TEAR DROP CELLS 1+
[2020-11-26 10:25] LABS: PLATELET ESTIMATE DECREASED (NORMAL)
== END ==
LOC: M LAB 08:37
PROVIDERS: ATTEND Nurse Practitioner
DX: C85.10 Unspecified B-cell lymphoma, unspecified site (principal)

== ENCOUNTER → 2020-11-26 | Outpatient (CLI) | payer MEDICARE, BC, OTHER ==
[2020-11-26 09:35] LABS: HEMATOCRIT 26.6 % (42.0-52.0); HEMOGLOBIN 8.7 g/dl (13.5-17.5); MEAN CORPUSCULAR HGB CONC 32.7 g/dl (32.0-36.5); MEAN CORPUSCULAR VOLUME 97.8 fl (80.0-96.0); PLATELET COUNT, AUTOMATED 130 10^3/uL (150-450); RED BLOOD COUNT 2.72 10^6/uL (4.30-6.10); WHITE BLOOD COUNT 24.4 10^3/uL (4.0-10.0)
[2020-11-26 10:11] LABS: HYPOCHROMASIA 1+; NEUTROPHILS 93 % (28-66); PLATELET ESTIMATE DECREASED (NORMAL); POIKILOCYTOSIS 2+; SCHISTOCYTES 1+
[2020-11-26 10:12] LABS: OVALOCYTES 1+; TEAR DROP CELLS 1+
== END ==
LOC: M LAB 08:43
PROVIDERS: ATTEND Internal Medicine Hematology & Oncology
DX: C83.30 Diffuse large B-cell lymphoma, unspecified site (principal); D75.9 Disease of blood and blood-forming organs, unspecified; C85.10 Unspecified B-cell lymphoma, unspecified site

== ENCOUNTER → 2020-11-29 | Outpatient (CLI) | payer MEDICARE, BC, OTHER ==
[2020-11-29 11:48] LABS: HEMATOCRIT 27.5 % (42.0-52.0); HEMOGLOBIN 8.7 g/dl (13.5-17.5); LYMPH % 18.6 % (24.0-44.0); MEAN CORPUSCULAR HEMOGLOBIN 31.2 pg (27.0-33.0); MEAN CORPUSCULAR HGB CONC 31.6 g/dl (32.0-36.5); MEAN CORPUSCULAR VOLUME 98.6 fl (80.0-96.0); MONO % 3.5 % (2.0-8.0); NEUTROPHILS % 75.5 % (36.0-66.0); PLATELET COUNT, AUTOMATED 35 10^3/uL (150-450); RED BLOOD COUNT 2.79 10^6/uL (4.30-6.10); WHITE BLOOD COUNT 0.9 10^3/uL (4.0-10.0)
[2020-11-29 11:49] LABS: EOS % 1.2 % (0.0-3.0); LYMPH # 0.2 10^3/uL (1.5-5.0); NEUTROPHILS # 0.7 10^3/uL (1.5-8.5)
== END ==
LOC: M LAB 10:36
PROVIDERS: ATTEND Internal Medicine Hematology & Oncology
DX: C83.30 Diffuse large B-cell lymphoma, unspecified site (principal)

== ENCOUNTER → 2020-11-29 | Outpatient (CLI) | payer MEDICARE, BC, OTHER ==
[2020-11-29 11:32] LABS: EOS % 1.2 % (0.0-3.0); HEMATOCRIT 27.5 % (42.0-52.0); HEMOGLOBIN 8.7 g/dl (13.5-17.5); LYMPH # 0.2 10^3/uL (1.5-5.0); LYMPH % 18.6 % (24.0-44.0); MEAN CORPUSCULAR HEMOGLOBIN 31.2 pg (27.0-33.0); MEAN CORPUSCULAR HGB CONC 31.6 g/dl (32.0-36.5); MEAN CORPUSCULAR VOLUME 98.6 fl (80.0-96.0); MONO % 3.5 % (2.0-8.0); NEUTROPHILS % 75.5 % (36.0-66.0); RED BLOOD COUNT 2.79 10^6/uL (4.30-6.10)
[2020-11-29 11:36] LABS: NEUTROPHILS # 0.7 10^3/uL (1.5-8.5); PLATELET COUNT, AUTOMATED 35 10^3/uL (150-450); WHITE BLOOD COUNT 0.9 10^3/uL (4.0-10.0)
== END ==
LOC: M LAB 10:07
PROVIDERS: ATTEND Nurse Practitioner
DX: C83.30 Diffuse large B-cell lymphoma, unspecified site (principal); D75.9 Disease of blood and blood-forming organs, unspecified; C85.10 Unspecified B-cell lymphoma, unspecified site

== ENCOUNTER → 2020-12-06 | Outpatient (CLI) | payer MEDICARE, BC, OTHER ==
[2020-12-06 10:53] LABS: HEMOGLOBIN 7.5 g/dl (13.5-17.5); MEAN CORPUSCULAR HEMOGLOBIN 30.9 pg (27.0-33.0); MEAN CORPUSCULAR HGB CONC 31.3 g/dl (32.0-36.5); MEAN CORPUSCULAR VOLUME 98.8 fl (80.0-96.0); RED BLOOD COUNT 2.43 10^6/uL (4.30-6.10); WHITE BLOOD COUNT 4.7 10^3/uL (4.0-10.0)
[2020-12-06 11:31] LABS: PLATELET COUNT, AUTOMATED 75 10^3/uL (150-450)
[2020-12-06 11:36] LABS: ATYPICAL LYMPH 1 % (0-5); BASOPHILS 1 % (0-1); LYMPHOCYTES 7 % (16-44); METAMYELOCYTES 3 % (0-0); MONOCYTES 13 % (0-5); MYELOCYTES 1 % (0-0); NEUTROPHILS 70 % (28-66); PLATELET ESTIMATE DECREASED (NORMAL)
[2020-12-06 11:37] LABS: POIKILOCYTOSIS 1+; POLYCHROMASIA 1+; TEAR DROP CELLS 1+
== END ==
LOC: M LAB 10:21
PROVIDERS: ATTEND Internal Medicine Hematology & Oncology
DX: C83.30 Diffuse large B-cell lymphoma, unspecified site (principal); D75.9 Disease of blood and blood-forming organs, unspecified

== ENCOUNTER → 2020-12-09 | Outpatient (CLI) | payer MEDICARE, BC, OTHER ==
[2020-12-09 09:59] LABS: HEMATOCRIT 25.7 % (42.0-52.0); MEAN CORPUSCULAR HEMOGLOBIN 31.9 pg (27.0-33.0); MEAN CORPUSCULAR HGB CONC 31.1 g/dl (32.0-36.5); MEAN CORPUSCULAR VOLUME 102.4 fl (80.0-96.0); PLATELET COUNT, AUTOMATED 141 10^3/uL (150-450); RED BLOOD COUNT 2.51 10^6/uL (4.30-6.10); WHITE BLOOD COUNT 3.9 10^3/uL (4.0-10.0)
[2020-12-09 10:23] LABS: ANISOCYTOSIS 2+; BASOPHILS 4 % (0-1); EOSINOPHILS 1 % (0-3); LYMPHOCYTES 10 % (16-44); MONOCYTES 4 % (0-5); NEUTROPHILS 79 % (28-66); PLATELET ESTIMATE DECREASED (NORMAL); POLYCHROMASIA 1+
[2020-12-09 10:24] LABS: OVALOCYTES 1+; TEAR DROP CELLS 1+
== END ==
LOC: M LAB 09:22
PROVIDERS: ATTEND Nurse Practitioner
DX: C83.30 Diffuse large B-cell lymphoma, unspecified site (principal); D75.9 Disease of blood and blood-forming organs, unspecified

== ENCOUNTER → 2020-12-13 | Outpatient (CLI) | payer MEDICARE, BC, OTHER ==
[2020-12-13 11:10] LABS: BASO # 0.1 10^3/uL (0.0-0.2); BASO % 1.9 % (0.0-1.0); EOS % 0.4 % (0.0-3.0); HEMATOCRIT 27.1 % (42.0-52.0); HEMOGLOBIN 8.5 g/dl (13.5-17.5); LYMPH # 0.4 10^3/uL (1.5-5.0); LYMPH % 15.6 % (24.0-44.0); MEAN CORPUSCULAR HEMOGLOBIN 32.6 pg (27.0-33.0); MEAN CORPUSCULAR HGB CONC 31.4 g/dl (32.0-36.5); MEAN CORPUSCULAR VOLUME 103.8 fl (80.0-96.0); MONO # 0.5 10^3/uL (0.0-0.8); MONO % 17.8 % (2.0-8.0); NEUTROPHILS # 1.7 10^3/uL (1.5-8.5); NEUTROPHILS % 62.4 % (36.0-66.0); PLATELET COUNT, AUTOMATED 177 10^3/uL (150-450); RED BLOOD COUNT 2.61 10^6/uL (4.30-6.10); WHITE BLOOD COUNT 2.7 10^3/uL (4.0-10.0)
== END ==
LOC: M LAB 10:37
PROVIDERS: ATTEND Internal Medicine Hematology & Oncology
DX: C83.30 Diffuse large B-cell lymphoma, unspecified site (principal); D75.9 Disease of blood and blood-forming organs, unspecified

== ENCOUNTER → 2020-12-27 | Outpatient (CLI) | payer MEDICARE, BC, OTHER ==
[2020-12-27 12:03] LABS: BASO % 0.9 % (0.0-1.0); EOS # 0.1 10^3/uL (0.0-0.5); EOS % 3.1 % (0.0-3.0); HEMATOCRIT 32.9 % (42.0-52.0); HEMOGLOBIN 10.5 g/dl (13.5-17.5); LYMPH # 0.5 10^3/uL (1.5-5.0); LYMPH % 14.3 % (24.0-44.0); MEAN CORPUSCULAR HEMOGLOBIN 32.9 pg (27.0-33.0); MEAN CORPUSCULAR HGB CONC 31.9 g/dl (32.0-36.5); MEAN CORPUSCULAR VOLUME 103.1 fl (80.0-96.0); MONO # 0.5 10^3/uL (0.0-0.8); MONO % 16.8 % (2.0-8.0); NEUTROPHILS # 2.1 10^3/uL (1.5-8.5); NEUTROPHILS % 64.3 % (36.0-66.0); PLATELET COUNT, AUTOMATED 162 10^3/uL (150-450); RED BLOOD COUNT 3.19 10^6/uL (4.30-6.10); WHITE BLOOD COUNT 3.2 10^3/uL (4.0-10.0)
== END ==
LOC: M LAB 11:23
PROVIDERS: ATTEND Internal Medicine Hematology & Oncology
DX: C83.30 Diffuse large B-cell lymphoma, unspecified site (principal); D75.9 Disease of blood and blood-forming organs, unspecified

== ENCOUNTER → 2021-01-11 | Outpatient (CLI) | payer MEDICARE, BC, OTHER ==
[2021-01-11 10:00] LABS: EOS # 0.3 10^3/uL (0.0-0.5); EOS % 8.2 % (0.0-3.0); HEMATOCRIT 34.8 % (42.0-52.0); HEMOGLOBIN 11.4 g/dl (13.5-17.5); LYMPH # 0.5 10^3/uL (1.5-5.0); LYMPH % 14.8 % (24.0-44.0); MEAN CORPUSCULAR HEMOGLOBIN 32.9 pg (27.0-33.0); MEAN CORPUSCULAR HGB CONC 32.8 g/dl (32.0-36.5); MEAN CORPUSCULAR VOLUME 100.6 fl (80.0-96.0); MONO # 0.4 10^3/uL (0.0-0.8); MONO % 13.1 % (2.0-8.0); NEUTROPHILS # 1.9 10^3/uL (1.5-8.5); NEUTROPHILS % 62.6 % (36.0-66.0); PLATELET COUNT, AUTOMATED 140 10^3/uL (150-450); RED BLOOD COUNT 3.46 10^6/uL (4.30-6.10); WHITE BLOOD COUNT 3.1 10^3/uL (4.0-10.0)
== END ==
LOC: M LAB 09:17
PROVIDERS: ATTEND Internal Medicine Hematology & Oncology
DX: C83.30 Diffuse large B-cell lymphoma, unspecified site (principal); D75.9 Disease of blood and blood-forming organs, unspecified

== ENCOUNTER → 2021-01-27 | Outpatient (CLI) | payer MEDICARE, BC, OTHER ==
--- NOTE | 2021-01-28 09:24 | RADONC.CN ---
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 He is s/p R-EPOCH x 6 cycles completed in December 2020. He has DS 4 residual sachin activity in left axillary level 1 and 2 nodes and is seen today for consideration of consolidative ISRT. Diagnosis/Treatment History Oncologic History Presented in June 2020 with rapidly enlarging left axillary nodes, and left chest swelling, no fevers, night sweats, or weight loss. US on 07/12/20 showed left axillary nodes enlarged to [address] scans from 07/26/20 showed massively enlarged confluent left axillary adenopathy and diffuse swelling of the left pectoralis major (c/w rotters sachin involvement). Biopsy on 07/27/20 revealed DLBCL C-MYC+ BCL2/6- Ki-67 95%. He was started urgently on R-EPOCH chemotherapy @ [facility] with Dr. Mercedes, interim PET-CT after 2 cycles on 10/06/20 showed a good response. He completed cycle 6 in December 2020. Post-chemotherapy PET-CT on 01/14/21 showed DS 4 residual avidity in 2 nodes on the border of left axillary levels 1 and 2. Interval History Brett feels some residual fatigue from chemotherapy. He tolerated it well overall though, he was hospitalized for each cycle and required hydration and antiemetics, but he usually recovered to full function within days. Today he has no nausea, no diarrhea, no JENKINS, or pain. He is eager to proceed with treatment, having already discussed ISRT with Dr. Geiger @ [facility]. Past Medical History: Gout HPL Hypothyroid Past Surgical History: None Family History: No family history of cancer Social History: Never smoker Drinks occasionally Allergies / Meds Allergies: Coded Allergies: No Known Allergies (Unverified , 01/11/17) Home Meds Reported Medications Docusate Sodium (Stool Softener) 100 Mg Cap, 100 MG PO DAILY, CAP 01/11/17 Multivitamins (Multivitamin Adults) 1 Tab Tab, 1 TAB PO DAILY, TAB 01/11/17 Atorvastatin Calcium (Atorvastatin Calcium) 80 Mg Tab, 80 MG PO DAILY, TAB 01/11/17 Levothyroxine Sodium (LEVOTHYROXINE SODIUM) 75 Mcg Tab, 75 MCG PO DAILY, TAB 01/11/17 Allopurinol (Allopurinol) 100 Mg Tab, 100 MG PO DAILY, TAB 01/11/17 Dutasteride (Dutasteride) 0.5 Mg Cap, 0.5 MG PO DAILY, CAP 01/11/17 Aspirin (Aspirin EC) 81 Mg Tab, 81 MG PO DAILY, #30 TAB 01/11/17 Pregabalin (Lyrica) 75 Mg Cap, 75 MG PO BID, CAP 01/11/17 Discontinued Scripts Ciprofloxacin HCl (Cipro) 500 Mg Tablet, 500 MG PO BID, #14 TAB Prov:Edna Anderson MD 03/24/19 Review of Systems Constitutional: Reports: Fatigue; Denies: Chills, Fever, Weight Loss Eyes: Denies: Pain, Vision change HEENT: Denies: Head Aches Skin: Denies: Rash Pulmonary: Denies: Dyspnea, Cough Cardiovascular: Denies: Chest Pain, Palpitations Gastrointestinal: Denies: Nausea, Abdominal Pain, Diarrhea Hematologic: Denies: Bruising, Bleeding Excessively Endocrine: Denies: Cold Intolerance Musculoskeletal: Denies: Neck pain, Back pain Neurological: Denies: Weakness, Numbness Psych: Reports: Mood Normal Vital Signs Wt 242 lbs T 96.4 P 74 RR 20 BP 131/87 O2 96% Pain 0 Fatigue 0 General Exam: Alert, Cooperative, No Acute Distress Eye Exam: PERRLA, EOMI ENT EXAM: Atraumatic Neck Exam: Supple; Negative: Lymphadenopathy Chest Exam: Clear to auscultation Heart Exam: Rate Normal Breast Exam: Symmetric Bilaterally; Negative: Lumps or Masses (Pectoral muscles symmetrical, no swelling. No axillary adenopathy palpable) Abdomen Exam: Soft Extremity Exam: Negative: Edema Skin Exam: Nl turgor and temperature Neuro Exam: Normal Gait, Normal Speech, Cranial Nerves 3-12 NL Psych Exam: Mental status NL Diagnostic and Laboratory Diagnostic Review Radiologic images, relevant labs and pathology reports were personally reviewed and discussed with Mr. Marquez. Assessment and Plan Impression Mr. 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 He is s/p R-EPOCH x 6 cycles completed in December 2020. He has DS 4 residual sachin activity in left axillary level 1 and 2 nodes and is seen today for consideration of consolidative ISRT. Stage DLBCL Left axilla and chest stage IIE Performance Status ECOG 0 Plan We had an extensive discussion with Mr. Marquez regarding the diagnosis at hand and available therapeutic options. He is doing well having recovered largely from R-EPOCH. Minimal fatigue today is all that remains. I reviewed his imaging and pathology in detail, at the time of treatment he had bulky left axillary adenopathy and homogenous swelling in the left pectoral muscle, suggestive of Messi's sachin involvement. Overall extent of the sachin conglomerate was in excess of 15 cm. He has had an excellent response to chem otherapy with only a small foci of chemo-refractory disease DS 4 in the boundary of the level 1 and 2 left axilla. For treatment I recommend ISRT 50.4 Gy in 28 fractions to the persistently avid nodes, and a consolidative dose of 36 Gy to the remainder of the initially involved sites. I think the high grade and bulk of the disease warrants the slightly increased consolidative dose. This treatment would be accomplished in 2 phases. Given his age and relative health, I will use DIBH technique for treatment and VMAT to respect the heart, lung and esophagus, which are at risk. Following this I will obtain a PET-CT @ 8 weeks to confirm CR in the treated nodes. We discussed the logistics of receiving radiation therapy in detail including the need for a 1-time planning session. This can occur in the next week or so. We reviewed the side effects of treatment including fatigue, skin reaction, lymphedema and pneumonitis. After discussing the risks, benefits and alternatives to radiation therapy, Mr. Marquez was amenable to pursuing radiotherapy. All questions were answered to the patient's satisfaction. We instructed the patient that if there were any questions,concerns or changes in clinical status in the interim to contact us. Recommendations ISRT 50.4 Gy in 28 fractions to residual sachin disease, 36 Gy to remainder of initially involved sites w/ VMAT DIBH simulation in the next week Will plan on PET-CT @ 2 months post ISRT to confirm CR Billing Statement Total time of [55] minutes was spent preparing for the visit [5], obtaining HPI [8], examining the patient [4], reviewing diagnostic tests [8], discussing management options [14], coordinating care [5], and writing this note [11]. GABY HORTA MD Jan 28, 2021 09:24
== END ==
LOC: M ONCR 13:52
PROVIDERS: ATTEND General Practice
DX: C83.34 Diffuse large B-cell lymphoma, lymph nodes of axilla and upper limb (principal); M10.9 Gout, unspecified; E03.9 Hypothyroidism, unspecified; Z79.899 Other long term (current) drug therapy; Z79.82 Long term (current) use of aspirin

== ENCOUNTER 2021-02-10 12:55 | Outpatient (RCR) | payer MEDICARE, BC, OTHER ==
[2021-03-28] MEDS ORDERED: BACT800T5 PO (08:42)
== END 2021-02-15 ==
LOC: M ONCR 12:55
PROVIDERS: ATTEND General Practice
DX: C83.34 Diffuse large B-cell lymphoma, lymph nodes of axilla and upper limb (principal)

== ENCOUNTER → 2021-03-17 | Outpatient (RCR) | payer MEDICARE, BC, OTHER | LOC: M ONCR 02-16 15:59 | PROVIDERS: ATTEND General Practice | DX: C83.34 Diffuse large B-cell lymphoma, lymph nodes of axilla and upper limb (principal) ==

== ENCOUNTER → 2021-03-21 | Outpatient (CLI) | payer MEDICARE, BC, OTHER ==
[~2021-03-21] MED LIST changes: +BACT800T5 PO
[2021-03-21 10:18] LABS: EOS # 0.1 10^3/uL (0.0-0.5); EOS % 3.1 % (0.0-3.0); HEMATOCRIT 38.2 % (42.0-52.0); LYMPH # 0.2 10^3/uL (1.5-5.0); LYMPH % 11.9 % (24.0-44.0); MEAN CORPUSCULAR HEMOGLOBIN 32.3 pg (27.0-33.0); MEAN CORPUSCULAR VOLUME 94.8 fl (80.0-96.0); MONO # 0.3 10^3/uL (0.0-0.8); MONO % 16.1 % (2.0-8.0); NEUTROPHILS # 1.3 10^3/uL (1.5-8.5); NEUTROPHILS % 66.9 % (36.0-66.0); PLATELET COUNT, AUTOMATED 108 10^3/uL (150-450); RED BLOOD COUNT 4.03 10^6/uL (4.30-6.10); WHITE BLOOD COUNT 1.9 10^3/uL (4.0-10.0)
[2021-03-24 11:30] LABS: APPEARANCE, URINE CLOUDY (CLEAR); BACTERIA, URINE AUTO NEGATIVE (NEGATIVE); BILIRUBIN, URINE AUTO NEGATIVE (NEGATIVE); BLOOD, URINE BLOOD 3+ (NEGATIVE); COLOR, URINE AMBER (YELLOW); GLUCOSE, URINE (UA) AUTO NEGATIVE (NEGATIVE); KETONE, URINE AUTO NEGATIVE (NEGATIVE); LEUKOCYTE ESTERASE, URINE AUTO 3+ (NEGATIVE); MUCUS, URINE LARGE (NEGATIVE); NITRITE, URINE AUTO POSITIVE (NEGATIVE); PROTEIN, URINE AUTO 2+ mg/dL (NEGATIVE); RBC, URINE AUTO 37 /HPF (0-3); SPECIFIC GRAVITY URINE AUTO 1.026 (1.002-1.035); SQUAMOUS EPITHELIAL CELL UR AU 4 /HPF (0-6); UROBILINOGEN, URINE AUTO 0.2 mg/dL (0.0-2.0); WBC, URINE AUTO TNTC /HPF (0-3)
== END ==
LOC: M LAB 09:46
PROVIDERS: ATTEND Internal Medicine Hematology & Oncology
DX: D75.9 Disease of blood and blood-forming organs, unspecified (principal)

== ENCOUNTER 2021-04-01 08:20 | Outpatient (RCR) | payer MEDICARE, BC, OTHER | END 2021-04-17 | LOC: M ONCR 08:20 | PROVIDERS: ATTEND General Practice | DX: C83.34 Diffuse large B-cell lymphoma, lymph nodes of axilla and upper limb (principal); R23.8 Other skin changes ==

== ENCOUNTER → 2021-05-10 | Outpatient (CLI) | payer MEDICARE, BC, OTHER ==
[2021-05-10 14:55] LABS: HEMATOCRIT 40.4 % (42.0-52.0); HEMOGLOBIN 13.5 g/dl (13.5-17.5); MEAN CORPUSCULAR HEMOGLOBIN 32.3 pg (27.0-33.0); MEAN CORPUSCULAR HGB CONC 33.4 g/dl (32.0-36.5); MEAN CORPUSCULAR VOLUME 96.7 fl (80.0-96.0); PLATELET COUNT, AUTOMATED 136 10^3/uL (150-450); RED BLOOD COUNT 4.18 10^6/uL (4.30-6.10); WHITE BLOOD COUNT 3.2 10^3/uL (4.0-10.0)
[2021-05-10 15:27] LABS: ALT/SGPT 40 U/L (12-78); BILIRUBIN,TOTAL 0.5 MG/DL (0.2-1.0); BLOOD UREA NITROGEN 18 MG/DL (7-18); CALCIUM LEVEL 9.3 MG/DL (8.8-10.2); CARBON DIOXIDE LEVEL 29 MEQ/L (21-32); CHLORIDE LEVEL 110 MEQ/L (98-107); CREATININE FOR GFR 0.93 MG/DL (0.70-1.30); GLOMERULAR FILTRATION RATE > 60.0 (>49); GLUCOSE, FASTING 95 MG/DL (70-100); LDH LACTATE DEHYDROGENASE 218 U/L (87-241); POTASSIUM SERUM 4.2 MEQ/L (3.5-5.1); SODIUM LEVEL 143 MEQ/L (136-145); TOTAL PROTEIN 6.5 GM/DL (6.4-8.2)
== END ==
LOC: M LAB 14:12
PROVIDERS: ATTEND Nurse Practitioner Family
DX: C83.30 Diffuse large B-cell lymphoma, unspecified site (principal)

== ENCOUNTER → 2021-06-01 | Outpatient (REF) | payer BC, MEDICARE, OTHER | LOC: M LABSMTC 09:41 | PROVIDERS: ATTEND Pediatrics | DX: Z11.52 Encounter for screening for COVID-19 (principal); Z20.822 Contact with and (suspected) exposure to COVID-19 ==

== ENCOUNTER → 2021-06-08 | Outpatient (CLI) | payer MEDICARE, BC, OTHER ==
[2021-06-08 15:57] LABS: ALBUMIN 3.8 GM/DL (3.2-5.2); ALT/SGPT 35 U/L (12-78); BILIRUBIN,TOTAL 0.4 MG/DL (0.2-1.0); BLOOD UREA NITROGEN 18 MG/DL (7-18); CALCIUM LEVEL 8.7 MG/DL (8.8-10.2); CARBON DIOXIDE LEVEL 30 MEQ/L (21-32); CHLORIDE LEVEL 110 MEQ/L (98-107); CHOLESTEROL LEVEL 152 MG/DL (<200); CHOLESTEROL RISK RATIO 3.619 (<5); CREATININE FOR GFR 0.86 MG/DL (0.70-1.30); FREE T4 0.89 NG/DL (0.76-1.46); GLOMERULAR FILTRATION RATE > 60.0 (>49); GLUCOSE, FASTING 98 MG/DL (70-100); HDL CHOLESTEROL 42 MG/DL (>40); LDL CHOLESTEROL 53 MG/DL (<100); NON-HDL-C 110 MG/DL; POTASSIUM SERUM 4.3 MEQ/L (3.5-5.1); SODIUM LEVEL 143 MEQ/L (136-145); TOTAL PROTEIN 6.2 GM/DL (6.4-8.2); TRIGLYCERIDES LEVEL 285 MG/DL (<150)
== END ==
LOC: M PLALAB 13:44
PROVIDERS: ATTEND Family Medicine
DX: E03.9 Hypothyroidism, unspecified (principal); E78.5 Hyperlipidemia, unspecified; M79.2 Neuralgia and neuritis, unspecified

== ENCOUNTER → 2021-06-14 | Outpatient (CLI) | payer MEDICARE, BC, OTHER ==
[~2021-06-14] MED LIST changes: +SODIUM CHLORIDE 0.9% INJ 10 ML SYR IV PRN
[2021-06-14 09:14] LABS: ALBUMIN 3.9 GM/DL (3.2-5.2); ALT/SGPT 40 U/L (12-78); BILIRUBIN,TOTAL 0.5 MG/DL (0.2-1.0); BLOOD UREA NITROGEN 14 MG/DL (7-18); CALCIUM LEVEL 8.5 MG/DL (8.8-10.2); CARBON DIOXIDE LEVEL 25 MEQ/L (21-32); CHLORIDE LEVEL 111 MEQ/L (98-107); CREATININE FOR GFR 0.94 MG/DL (0.70-1.30); GLOMERULAR FILTRATION RATE > 60.0 (>49); GLUCOSE, FASTING 106 MG/DL (70-100); POTASSIUM SERUM 4.1 MEQ/L (3.5-5.1); SODIUM LEVEL 141 MEQ/L (136-145); TOTAL PROTEIN 6.7 GM/DL (6.4-8.2)
== END ==
LOC: M ONCR 08:26
PROVIDERS: ATTEND General Practice
DX: C83.34 Diffuse large B-cell lymphoma, lymph nodes of axilla and upper limb (principal)
CPT/HCPCS: 36591; 80053; J1642

== ENCOUNTER → 2021-06-21 | Outpatient (CLI) | payer MEDICARE, BC, OTHER ==
[~2021-06-21] MED LIST changes: +ISOVUE-370 76% 100ML VIAL As Ordered ONE; -SODIUM CHLORIDE 0.9% INJ 10 ML SYR IV PRN
--- NOTE | 2021-06-21 15:10 | REP ---
INDICATION: LUNG CA COMPARISON: 07/26/2020 latest prior TECHNIQUE: Standard helical technique after the intravenous administration of 100 cc Isovue 370 FINDINGS: The bulky left axillary adenopathy seen on the prior exam has markedly improved. A single enlarged round 2.4 cm sized nodule persists. Previously present left lateral chest wall lymph edema has also markedly improved. Left axillary vein compression seen on the prior exam has nearly completely resolved. There is no mediastinal or hilar adenopathy. There are no pleural or pericardial effusions. There is no significant change in appearance of the imaged upper abdomen or imaged osseous structures. Evaluation of the lung felix shows no new abnormal nodules, masses, or opacities. IMPRESSION: Significant improvement as described above. <Electronically signed by Lokesh Tanner > 06/21/21 [id number]
--- NOTE | 2021-06-21 17:28 | REPVR ---
PROCEDURE INFORMATION: Exam: CT Neck With Contrast Exam date and time: 06/21/2021 2:24 PM Age: 66 years old Clinical indication: Condition or disease; Cancer; Other: Lung CA TECHNIQUE: Imaging protocol: Computed tomography images of the neck with contrast. Radiation optimization: All CT scans at this facility use at least one of these dose optimization techniques: automated exposure control; mA and/or kV adjustment per patient size (includes targeted exams where dose is matched to clinical indication); or iterative reconstruction. Contrast material: ISOVUE 370; Contrast volume: 100 ml; Contrast route: INTRAVENOUS (IV); COMPARISON: PET/CT SKULL BASE TO MID THIGH - OUTSIDE PRIOR 05/09/2021 10:50 AM FINDINGS: Nasopharynx: Unremarkable. Oropharynx: Unremarkable. No significant tonsillar enlargement. Hypopharynx: Unremarkable. Larynx: Unremarkable. Normal epiglottis. Retropharyngeal space: Unremarkable. Submandibular/Parotid glands: Submandibular glands are unremarkable. The parotid glands are unremarkable. Thyroid: The right thyroid lobe is enlarged and contains 2 dominant hypodense lesions, the larger measuring 1.5 x 2.2 cm. Lymph nodes: No lymphadenopathy is seen. Trachea: Visualized trachea is unremarkable. Lungs: Emphysematous changes. Bones/joints: Spondylitic changes of the C5-C6 and C6-C7 levels.No destructive osseous lesions are identified. Soft tissues: A previously described left axillary lesion is not visualized on the current study. IMPRESSION: 1. Right thyroid lobe nodules. 2. No lymphadenopathy. COMMENTS: Consistent with the [employer]'s Incidental Findings Committee white paper (J Am Lily Radiol 2015): In patients aged 35 years and older with an incidental thyroid nodule equal to or greater than 1.[address], MRI or extrathyroidal US, further evaluation with dedicated thyroid US is recommended for patients with normal life expectancy and without comorbidities. For smaller nodules without suspicious features, no further evaluation or follow up is recommended. Electronically signed by: Ariela Mancera On 06/21/2021 17:27:41 PM
== END ==
LOC: M RAD 13:54
PROVIDERS: ATTEND General Practice
DX: C83.34 Diffuse large B-cell lymphoma, lymph nodes of axilla and upper limb (principal); E04.1 Nontoxic single thyroid nodule
CPT/HCPCS: 70491; 71260; Q9967

== ENCOUNTER → 2021-06-28 | Outpatient (CLI) | payer MEDICARE, BC, OTHER ==
[~2021-06-28] MED LIST changes: -ISOVUE-370 76% 100ML VIAL As Ordered ONE
== END ==
LOC: M ONCR 08:27
PROVIDERS: ATTEND General Practice
DX: C83.34 Diffuse large B-cell lymphoma, lymph nodes of axilla and upper limb (principal); Z92.3 Personal history of irradiation; Z92.21 Personal history of antineoplastic chemotherapy; Z79.899 Other long term (current) drug therapy

== ENCOUNTER → 2021-06-30 | Outpatient (CLI) | payer MEDICARE, BC, OTHER ==
[2021-06-30 11:25] LABS: BASO % 0.6 % (0.0-1.0); EOS # 0.1 10^3/uL (0.0-0.5); EOS % 2.8 % (0.0-3.0); HEMATOCRIT 39.7 % (42.0-52.0); HEMOGLOBIN 13.6 g/dl (13.5-17.5); LYMPH # 0.5 10^3/uL (1.5-5.0); LYMPH % 15.9 % (24.0-44.0); MEAN CORPUSCULAR HEMOGLOBIN 33.2 pg (27.0-33.0); MEAN CORPUSCULAR HGB CONC 34.3 g/dl (32.0-36.5); MEAN CORPUSCULAR VOLUME 96.8 fl (80.0-96.0); MONO # 0.4 10^3/uL (0.0-0.8); MONO % 11.9 % (2.0-8.0); NEUTROPHILS # 2.2 10^3/uL (1.5-8.5); NEUTROPHILS % 67.5 % (36.0-66.0); PLATELET COUNT, AUTOMATED 139 10^3/uL (150-450); WHITE BLOOD COUNT 3.2 10^3/uL (4.0-10.0)
[2021-06-30 11:43] LABS: INR 0.99; PROTHROMBIN TIME 13.5 SECONDS (12.7-14.5)
[2021-06-30 12:01] LABS: ALBUMIN 3.8 GM/DL (3.2-5.2); ALT/SGPT 50 U/L (12-78); BILIRUBIN,TOTAL 0.3 MG/DL (0.2-1.0); BLOOD UREA NITROGEN 16 MG/DL (7-18); CALCIUM LEVEL 8.7 MG/DL (8.8-10.2); CARBON DIOXIDE LEVEL 28 MEQ/L (21-32); CHLORIDE LEVEL 110 MEQ/L (98-107); CREATININE FOR GFR 0.92 MG/DL (0.70-1.30); GLOMERULAR FILTRATION RATE > 60.0 (>49); GLUCOSE, FASTING 115 MG/DL (70-100); POTASSIUM SERUM 4.3 MEQ/L (3.5-5.1); SODIUM LEVEL 142 MEQ/L (136-145); TOTAL PROTEIN 6.2 GM/DL (6.4-8.2)
== END ==
LOC: M ONCR 11:05
PROVIDERS: ATTEND General Practice
DX: C83.34 Diffuse large B-cell lymphoma, lymph nodes of axilla and upper limb (principal)

== ENCOUNTER 2021-07-09 15:05 | Emergency (ER) | payer MEDICARE, BC, OTHER ==
[~2021-07-09] VITALS: Ht 182.9 cm; Wt 115.9 kg
[2021-07-09] MEDS ORDERED: KETOROLAC 30 MG/ML 1ML VIAL IV ONE (16:10)
[2021-07-09] MEDS ORDERED: ONDANSETRON 4MG/2ML VIAL IV ONE (16:10)
[2021-07-09 16:13] LABS: BASO % 0.4 % (0.0-1.0); EOS # 0.1 10^3/uL (0.0-0.5); EOS % 1.8 % (0.0-3.0); HEMATOCRIT 39.5 % (42.0-52.0); HEMOGLOBIN 13.5 g/dl (13.5-17.5); LYMPH # 0.5 10^3/uL (1.5-5.0); LYMPH % 9.9 % (24.0-44.0); MEAN CORPUSCULAR HEMOGLOBIN 33.3 pg (27.0-33.0); MEAN CORPUSCULAR HGB CONC 34.2 g/dl (32.0-36.5); MEAN CORPUSCULAR VOLUME 97.3 fl (80.0-96.0); MONO # 0.4 10^3/uL (0.0-0.8); MONO % 7.2 % (2.0-8.0); NEUTROPHILS % 79.9 % (36.0-66.0); PLATELET COUNT, AUTOMATED 137 10^3/uL (150-450); RED BLOOD COUNT 4.06 10^6/uL (4.30-6.10)
[2021-07-09 16:34] LABS: BILIRUBIN,DIRECT 0.1 MG/DL (0.0-0.2); BILIRUBIN,TOTAL 0.4 MG/DL (0.2-1.0); TOTAL PROTEIN 6.7 GM/DL (6.4-8.2)
[2021-07-09] MEDS ORDERED: TAMSULOSIN 0.4 MG CAP PO ONE (17:20)
[2021-07-09] MEDS ORDERED: FLOM0.4C39 PO (17:21)
[2021-07-09] MEDS ORDERED: KETO10TAB PO (17:21)
[2021-07-09] MEDS ORDERED: KETOROLAC TROMETHAMINE 10 MG TAB PO ONE ×2 (17:40)
[2021-07-09] MEDS ORDERED: ONDA4TAB6 PO (17:43)
[2021-07-09] MEDS ORDERED: ONDANSETRON 4 MG ORAL DISINTEGRATING TAB PO ONE ×2 (17:45)
[2021-07-09 18:02] VITALS: BP 132/66
== END 2021-07-09 18:03 | disposition home or self-care (01) ==
LOC: EDBD 15:05 → M ED 15:05
DX: N20.0 Calculus of kidney (principal); E78.5 Hyperlipidemia, unspecified; E03.9 Hypothyroidism, unspecified; N40.0 Benign prostatic hyperplasia without lower urinary tract symptoms; M10.9 Gout, unspecified; C85.10 Unspecified B-cell lymphoma, unspecified site; Z79.899 Other long term (current) drug therapy; Z79.890 Hormone replacement therapy; Z79.82 Long term (current) use of aspirin
CPT/HCPCS: 36415; 74176; 80047; 80076; 81001; 83690; 85025; 87088; 87186; 96374; 96375; 99284; J1885; J2405; Q0162

== ENCOUNTER → 2021-07-11 | Outpatient (CLI) | payer MEDICARE, BC, OTHER ==
[~2021-07-11] MED LIST changes: +KETO10TAB PO; +LIDOCAINE 1% MDV 20ML VIAL As Ordered ONE; +ONDA4TAB6 PO
[2021-07-11 09:28] VITALS: BP 136/90
[2021-07-11 09:54] LABS: BASO % 0.2 % (0.0-1.0); EOS % 0.2 % (0.0-3.0); HEMATOCRIT 37.1 % (42.0-52.0); HEMOGLOBIN 12.8 g/dl (13.5-17.5); LYMPH # 0.1 10^3/uL (1.5-5.0); LYMPH % 1.6 % (24.0-44.0); MEAN CORPUSCULAR HGB CONC 34.5 g/dl (32.0-36.5); MEAN CORPUSCULAR VOLUME 95.6 fl (80.0-96.0); MONO # 0.5 10^3/uL (0.0-0.8); MONO % 7.7 % (2.0-8.0); NEUTROPHILS # 5.5 10^3/uL (1.5-8.5); NEUTROPHILS % 89.6 % (36.0-66.0); PLATELET COUNT, AUTOMATED 104 10^3/uL (150-450); RED BLOOD COUNT 3.88 10^6/uL (4.30-6.10); WHITE BLOOD COUNT 6.1 10^3/uL (4.0-10.0)
[2021-07-11 11:27] LABS: ALBUMIN 3.4 GM/DL (3.2-5.2); ALT/SGPT 28 U/L (12-78); BILIRUBIN,TOTAL 1.2 MG/DL (0.2-1.0); BLOOD UREA NITROGEN 21 MG/DL (7-18); CALCIUM LEVEL 8.8 MG/DL (8.8-10.2); CARBON DIOXIDE LEVEL 23 MEQ/L (21-32); CHLORIDE LEVEL 104 MEQ/L (98-107); GLOMERULAR FILTRATION RATE > 60.0 (>49); GLUCOSE, FASTING 135 MG/DL (70-100); LDH LACTATE DEHYDROGENASE 200 U/L (87-241); POTASSIUM SERUM 3.7 MEQ/L (3.5-5.1); SODIUM LEVEL 135 MEQ/L (136-145); TOTAL PROTEIN 6.6 GM/DL (6.4-8.2)
== END ==
LOC: M IRPRO 08:03
PROVIDERS: ATTEND General Practice
DX: C83.34 Diffuse large B-cell lymphoma, lymph nodes of axilla and upper limb (principal); Z79.899 Other long term (current) drug therapy

== ENCOUNTER → 2021-08-02 | Outpatient (CLI) | payer MEDICARE, BC, OTHER ==
[~2021-08-02] MED LIST changes: -LIDOCAINE 1% MDV 20ML VIAL As Ordered ONE
[2021-08-03 19:07] LABS: TESTOSTERONE FREE (DIRECT) 5.1 pg/mL (6.6-18.1)
== END ==
LOC: M PLALAB 08:41
PROVIDERS: ATTEND Family Medicine
DX: N62 Hypertrophy of breast (principal)

== ENCOUNTER → 2021-10-20 | Outpatient (CLI) | payer MEDICARE, BC, OTHER ==
[2021-10-20 11:02] LABS: ALBUMIN 3.7 GM/DL (3.2-5.2); ALT/SGPT 38 U/L (12-78); BILIRUBIN,TOTAL 0.5 MG/DL (0.2-1.0); BLOOD UREA NITROGEN 16 MG/DL (7-18); CARBON DIOXIDE LEVEL 26 MEQ/L (21-32); CHLORIDE LEVEL 109 MEQ/L (98-107); CHOLESTEROL LEVEL 162 MG/DL (<200); CHOLESTEROL RISK RATIO 3.857 (<5); CREATININE FOR GFR 0.88 MG/DL (0.70-1.30); GLOMERULAR FILTRATION RATE > 60.0 (>49); GLUCOSE, FASTING 113 MG/DL (70-100); HDL CHOLESTEROL 42 MG/DL (>40); LDL CHOLESTEROL 80 MG/DL (<100); NON-HDL-C 120 MG/DL; POTASSIUM SERUM 4.3 MEQ/L (3.5-5.1); SODIUM LEVEL 141 MEQ/L (136-145); TOTAL PROTEIN 6.2 GM/DL (6.4-8.2); TRIGLYCERIDES LEVEL 198 MG/DL (<150); URIC ACID 5.5 MG/DL (3.5-7.2)
[2021-10-20 11:29] LABS: VITAMIN B12 LEVEL 325 PG/ML
== END ==
LOC: M PLALAB 08:27
PROVIDERS: ATTEND Family Medicine
DX: E03.9 Hypothyroidism, unspecified (principal)

== ENCOUNTER → 2021-11-10 | Outpatient (CLI) | payer MEDICARE, BC, OTHER | LOC: M PLALAB 15:12 | PROVIDERS: ATTEND Family Medicine | DX: S50.862A Insect bite (nonvenomous) of left forearm, initial encounter (principal) ==

== ENCOUNTER → 2021-11-24 | Outpatient (REF) | payer MEDICARE, OTHER | LOC: M SFHCPLAZ 10:06 | PROVIDERS: ATTEND Family Medicine | DX: L57.0 Actinic keratosis (principal); L82.1 Other seborrheic keratosis ==

== ENCOUNTER → 2021-12-06 | Outpatient (CLI) | payer MEDICARE, BC, OTHER | LOC: M ONCR 09:42 | PROVIDERS: ATTEND General Practice | DX: C83.39 Diffuse large B-cell lymphoma, extranodal and solid organ sites (principal); L57.0 Actinic keratosis; Z79.82 Long term (current) use of aspirin; Z79.899 Other long term (current) drug therapy; Z92.3 Personal history of irradiation; Z92.21 Personal history of antineoplastic chemotherapy ==

== ENCOUNTER → 2022-05-31 | Outpatient (CLI) | payer MEDICARE, BC, OTHER | LOC: M ONCR 10:19 | PROVIDERS: ATTEND General Practice | DX: C83.34 Diffuse large B-cell lymphoma, lymph nodes of axilla and upper limb (principal); Z79.82 Long term (current) use of aspirin; Z79.890 Hormone replacement therapy; Z79.899 Other long term (current) drug therapy; Z92.21 Personal history of antineoplastic chemotherapy; Z92.3 Personal history of irradiation ==

== ENCOUNTER → 2022-06-16 | Outpatient (CLI) | payer MEDICARE, BC, OTHER | LOC: M RAD 12:06 | PROVIDERS: ATTEND Family Medicine | DX: E04.1 Nontoxic single thyroid nodule (principal) ==

== ENCOUNTER → 2022-06-21 | Outpatient (CLI) | payer MEDICARE, BC, OTHER ==
[2022-06-21 11:06] LABS: BASO % 0.9 % (0.0-1.0); EOS # 0.1 10^3/uL (0.0-0.5); EOS % 3.4 % (0.0-3.0); HEMOGLOBIN 13.8 g/dl (13.5-17.5); LYMPH # 0.8 10^3/uL (1.5-5.0); LYMPH % 23.8 % (24.0-44.0); MEAN CORPUSCULAR HEMOGLOBIN 32.6 pg (27.0-33.0); MEAN CORPUSCULAR HGB CONC 33.7 g/dl (32.0-36.5); MEAN CORPUSCULAR VOLUME 96.9 fl (80.0-96.0); MONO # 0.4 10^3/uL (0.0-0.8); MONO % 12.8 % (2.0-8.0); NEUTROPHILS # 1.9 10^3/uL (1.5-8.5); NEUTROPHILS % 58.5 % (36.0-66.0); PLATELET COUNT, AUTOMATED 134 10^3/uL (150-450); RED BLOOD COUNT 4.23 10^6/uL (4.30-6.10); WHITE BLOOD COUNT 3.2 10^3/uL (4.0-10.0)
[2022-06-21 11:37] LABS: LDH LACTATE DEHYDROGENASE 207 U/L (120-246)
[2022-06-21 11:39] LABS: ALBUMIN 3.9 G/DL (3.2-5.2); ALKALINE PHOSPHATASE 75 U/L (46-116); ALT/SGPT 36 U/L (7.0-40); AST/SGOT 29 U/L (<34); BILIRUBIN,TOTAL 0.5 MG/DL (0.3-1.2); BLOOD UREA NITROGEN 16 MG/DL (9-23); CARBON DIOXIDE LEVEL 24 MMOL/L (20-31); CHLORIDE LEVEL 107 MMOL/L (98-107); CREATININE FOR GFR 1.03 MG/DL (0.70-1.30); GLOMERULAR FILTRATION RATE > 60.0 (>49); GLUCOSE, FASTING 104 MG/DL (74-106); POTASSIUM SERUM 4.3 MMOL/L (3.5-5.1); SODIUM LEVEL 143 MMOL/L (136-145); TOTAL PROTEIN 6.2 G/DL (5.7-8.2)
== END ==
LOC: M PLALAB 07:56
PROVIDERS: ATTEND Internal Medicine Hematology & Oncology
DX: C83.30 Diffuse large B-cell lymphoma, unspecified site (principal)

== ENCOUNTER → 2022-06-21 | Outpatient (CLI) | payer MEDICARE, BC, OTHER ==
[2022-06-21 11:42] LABS: FREE T4 1.07 NG/DL (0.89-1.76)
[2022-06-21 11:43] LABS: THYROID STIMULATING HORMONE 3.457 uIU/ML (0.55-4.78)
== END ==
LOC: M PLALAB 07:53
PROVIDERS: ATTEND Family Medicine
DX: E03.9 Hypothyroidism, unspecified (principal); E04.1 Nontoxic single thyroid nodule; C83.30 Diffuse large B-cell lymphoma, unspecified site

== ENCOUNTER → 2022-08-21 | Outpatient (CLI) | payer MEDICARE, BC, OTHER ==
[2022-08-21 15:52] LABS: BASO # 0.1 10^3/uL (0.0-0.2); BASO % 1.3 % (0.0-1.0); EOS # 0.2 10^3/uL (0.0-0.5); HEMATOCRIT 41.9 % (42.0-52.0); HEMOGLOBIN 13.8 g/dl (13.5-17.5); LYMPH # 0.9 10^3/uL (1.5-5.0); LYMPH % 22.8 % (24.0-44.0); MEAN CORPUSCULAR HEMOGLOBIN 32.2 pg (27.0-33.0); MEAN CORPUSCULAR HGB CONC 32.9 g/dl (32.0-36.5); MEAN CORPUSCULAR VOLUME 97.9 fl (80.0-96.0); MONO # 0.5 10^3/uL (0.0-0.8); MONO % 12.3 % (2.0-8.0); NEUTROPHILS # 2.4 10^3/uL (1.5-8.5); NEUTROPHILS % 58.6 % (36.0-66.0); PLATELET COUNT, AUTOMATED 135 10^3/uL (150-450); RED BLOOD COUNT 4.28 10^6/uL (4.30-6.10)
[2022-08-21 16:24] LABS: LDH LACTATE DEHYDROGENASE 206 U/L (120-246)
[2022-08-21 16:25] LABS: ALBUMIN 3.9 G/DL (3.2-5.2); ALKALINE PHOSPHATASE 82 U/L (46-116); ALT/SGPT 36 U/L (7.0-40); AST/SGOT 26 U/L (<34); BILIRUBIN,TOTAL 0.4 MG/DL (0.3-1.2); BLOOD UREA NITROGEN 18 MG/DL (9-23); CALCIUM LEVEL 8.7 MG/DL (8.3-10.6); CARBON DIOXIDE LEVEL 29 MMOL/L (20-31); CHLORIDE LEVEL 107 MMOL/L (98-107); CREATININE FOR GFR 0.99 MG/DL (0.70-1.30); GLOMERULAR FILTRATION RATE > 60.0 (>49); GLUCOSE, FASTING 132 MG/DL (74-106); POTASSIUM SERUM 4.4 MMOL/L (3.5-5.1); SODIUM LEVEL 143 MMOL/L (136-145); TOTAL PROTEIN 6.2 G/DL (5.7-8.2)
== END ==
LOC: M PLALAB 13:56
PROVIDERS: ATTEND Nurse Practitioner Family
DX: C83.30 Diffuse large B-cell lymphoma, unspecified site (principal)

== ENCOUNTER → 2022-10-09 | Outpatient (CLI) | payer MEDICARE, BC, OTHER ==
[2022-10-09 11:09] LABS: BASO % 0.6 % (0.0-1.0); EOS # 0.1 10^3/uL (0.0-0.5); EOS % 3.6 % (0.0-3.0); HEMATOCRIT 41.5 % (42.0-52.0); HEMOGLOBIN 14.1 g/dl (13.5-17.5); LYMPH # 0.7 10^3/uL (1.5-5.0); LYMPH % 22.1 % (24.0-44.0); MEAN CORPUSCULAR HEMOGLOBIN 32.9 pg (27.0-33.0); MONO # 0.4 10^3/uL (0.0-0.8); MONO % 11.6 % (2.0-8.0); NEUTROPHILS # 2.1 10^3/uL (1.5-8.5); NEUTROPHILS % 61.5 % (36.0-66.0); PLATELET COUNT, AUTOMATED 136 10^3/uL (150-450); RED BLOOD COUNT 4.28 10^6/uL (4.30-6.10); WHITE BLOOD COUNT 3.4 10^3/uL (4.0-10.0)
[2022-10-09 11:16] LABS: HEMOGLOBIN A1c 5.6 % (4.0-6.0)
[2022-10-09 11:30] LABS: URIC ACID 6.2 MG/DL (3.7-9.2)
[2022-10-09 11:34] LABS: ALBUMIN 3.8 G/DL (3.2-5.2); ALKALINE PHOSPHATASE 75 U/L (46-116); ALT/SGPT 40 U/L (7.0-40); AST/SGOT 33 U/L (<34); BILIRUBIN,TOTAL 0.6 MG/DL (0.3-1.2); BLOOD UREA NITROGEN 13 MG/DL (9-23); CALCIUM LEVEL 8.8 MG/DL (8.3-10.6); CARBON DIOXIDE LEVEL 28 MMOL/L (20-31); CHLORIDE LEVEL 108 MMOL/L (98-107); CHOLESTEROL LEVEL 154 MG/DL (<200); CHOLESTEROL RISK RATIO 3.73 (<5); CREATININE FOR GFR 0.96 MG/DL (0.70-1.30); GLOMERULAR FILTRATION RATE > 60.0 (>49); GLUCOSE, FASTING 110 MG/DL (74-106); HDL CHOLESTEROL 41.2 MG/DL (>40); LDL CHOLESTEROL 74.4 MG/DL (<100); NON-HDL-C 112.8 MG/DL; POTASSIUM SERUM 4.2 MMOL/L (3.5-5.1); SODIUM LEVEL 141 MMOL/L (136-145); TOTAL PROTEIN 6.3 G/DL (5.7-8.2); TRIGLYCERIDES LEVEL 192 MG/DL (<150)
[2022-10-09 11:35] LABS: FOLATE 14.31 NG/ML (>5.4); THYROID STIMULATING HORMONE 4.775 uIU/ML (0.55-4.78); VITAMIN B12 LEVEL 257 PG/ML (211-911)
== END ==
LOC: M PLALAB 08:20
PROVIDERS: ATTEND Family Medicine
DX: E78.1 Pure hyperglyceridemia (principal); G63 Polyneuropathy in diseases classified elsewhere; M1A.9XX0 Chronic gout, unspecified, without tophus (tophi); E03.9 Hypothyroidism, unspecified; R73.01 Impaired fasting glucose; Z85.72 Personal history of non-Hodgkin lymphomas

== ENCOUNTER → 2022-11-29 | Outpatient (CLI) | payer MEDICARE, BC, OTHER | LOC: M ONCR 10:24 | PROVIDERS: ATTEND General Practice | DX: C83.34 Diffuse large B-cell lymphoma, lymph nodes of axilla and upper limb (principal); Z71.2 Person consulting for explanation of examination or test findings; Z79.899 Other long term (current) drug therapy; Z92.21 Personal history of antineoplastic chemotherapy; Z92.3 Personal history of irradiation ==

== ENCOUNTER → 2022-12-14 | Outpatient (CLI) | payer MEDICARE, BC, OTHER ==
[2022-12-14 12:23] LABS: BASO % 0.9 % (0.0-1.0); EOS # 0.1 10^3/uL (0.0-0.5); EOS % 3.7 % (0.0-3.0); HEMATOCRIT 41.8 % (42.0-52.0); LYMPH # 0.8 10^3/uL (1.5-5.0); LYMPH % 25.8 % (24.0-44.0); MEAN CORPUSCULAR HEMOGLOBIN 32.6 pg (27.0-33.0); MEAN CORPUSCULAR HGB CONC 33.5 g/dl (32.0-36.5); MEAN CORPUSCULAR VOLUME 97.4 fl (80.0-96.0); MONO # 0.4 10^3/uL (0.0-0.8); MONO % 11.5 % (2.0-8.0); NEUTROPHILS # 1.9 10^3/uL (1.5-8.5); NEUTROPHILS % 57.5 % (36.0-66.0); PLATELET COUNT, AUTOMATED 133 10^3/uL (150-450); RED BLOOD COUNT 4.29 10^6/uL (4.30-6.10); WHITE BLOOD COUNT 3.2 10^3/uL (4.0-10.0)
[2022-12-14 12:41] LABS: LDH LACTATE DEHYDROGENASE 219 U/L (120-246)
[2022-12-14 12:42] LABS: ALBUMIN 3.9 G/DL (3.2-5.2); ALKALINE PHOSPHATASE 76 U/L (46-116); ALT/SGPT 37 U/L (7.0-40); AST/SGOT 27 U/L (<34); BILIRUBIN,TOTAL 0.6 MG/DL (0.3-1.2); BLOOD UREA NITROGEN 19 MG/DL (9-23); CALCIUM LEVEL 9.2 MG/DL (8.3-10.6); CARBON DIOXIDE LEVEL 25 MMOL/L (20-31); CHLORIDE LEVEL 108 MMOL/L (98-107); CREATININE FOR GFR 0.89 MG/DL (0.70-1.30); GLOMERULAR FILTRATION RATE > 60.0 (>49); GLUCOSE, FASTING 109 MG/DL (74-106); POTASSIUM SERUM 4.2 MMOL/L (3.5-5.1); SODIUM LEVEL 140 MMOL/L (136-145); TOTAL PROTEIN 6.1 G/DL (5.7-8.2)
== END ==
LOC: M PLALAB 08:17
PROVIDERS: ATTEND Nurse Practitioner Family
DX: C83.30 Diffuse large B-cell lymphoma, unspecified site (principal)

== ENCOUNTER → 2023-01-02 | Outpatient (CLI) | payer MEDICARE, BC, OTHER ==
[2023-01-02 14:01] LABS: FREE T4 1.31 NG/DL (0.89-1.76); THYROID STIMULATING HORMONE 1.108 uIU/ML (0.55-4.78)
== END ==
LOC: M PLALAB 10:18
PROVIDERS: ATTEND Family Medicine
DX: E03.9 Hypothyroidism, unspecified (principal)

== ENCOUNTER → 2023-05-31 | Outpatient (CLI) | payer MEDICARE, BC, OTHER | LOC: M ONCR 10:20 | PROVIDERS: ATTEND General Practice | DX: Z08 Encounter for follow-up examination after completed treatment for malignant neoplasm (principal); Z85.72 Personal history of non-Hodgkin lymphomas; Z71.2 Person consulting for explanation of examination or test findings; Z79.82 Long term (current) use of aspirin; Z79.890 Hormone replacement therapy; Z79.899 Other long term (current) drug therapy; Z92.21 Personal history of antineoplastic chemotherapy; Z92.3 Personal history of irradiation ==

== ENCOUNTER → 2023-09-27 | Outpatient (CLI) | payer MEDICARE, BC ==
[2023-09-27 11:10] LABS: HEMATOCRIT 40.2 % (42.0-52.0); HEMOGLOBIN 13.8 g/dl (13.5-17.5); MEAN CORPUSCULAR HEMOGLOBIN 33.3 pg (27.0-33.0); MEAN CORPUSCULAR HGB CONC 34.3 g/dl (32.0-36.5); MEAN CORPUSCULAR VOLUME 96.9 fl (80.0-96.0); PLATELET COUNT, AUTOMATED 127 10^3/uL (150-450); RED BLOOD COUNT 4.15 10^6/uL (4.30-6.10); WHITE BLOOD COUNT 4.6 10^3/uL (4.0-10.0)
[2023-09-27 11:22] LABS: HEMOGLOBIN A1c 5.1 % (4.0-6.0)
[2023-09-27 11:37] LABS: URIC ACID 5.1 MG/DL (3.7-9.2)
[2023-09-27 11:40] LABS: ALBUMIN 3.3 G/DL (3.2-5.2); ALKALINE PHOSPHATASE 97 U/L (46-116); ALT/SGPT 35 U/L (7.0-40); AST/SGOT 29 U/L (<34); BILIRUBIN,TOTAL 0.6 MG/DL (0.3-1.2); BLOOD UREA NITROGEN 18 MG/DL (9-23); CALCIUM LEVEL 7.8 MG/DL (8.3-10.6); CARBON DIOXIDE LEVEL 26 MMOL/L (20-31); CHLORIDE LEVEL 109 MMOL/L (98-107); CHOLESTEROL LEVEL 133 MG/DL (<200); CHOLESTEROL RISK RATIO 2.98 (<5); CREATININE FOR GFR 0.88 MG/DL (0.70-1.30); GLOMERULAR FILTRATION RATE > 60.0 (>42); GLUCOSE, FASTING 109 MG/DL (74-106); HDL CHOLESTEROL 44.5 MG/DL (>40); LDL CHOLESTEROL 70.1 MG/DL (<100); NON-HDL-C 88.5 MG/DL; POTASSIUM SERUM 4.1 MMOL/L (3.5-5.1); SODIUM LEVEL 141 MMOL/L (136-145); TOTAL PROTEIN 5.7 G/DL (5.7-8.2); TRIGLYCERIDES LEVEL 92 MG/DL (<150)
[2023-09-27 11:43] LABS: THYROID STIMULATING HORMONE 1.181 uIU/ML (0.55-4.78)
== END ==
LOC: M PLALAB 08:08
PROVIDERS: ATTEND Family Medicine
DX: E78.1 Pure hyperglyceridemia (principal); R73.01 Impaired fasting glucose; M1A.9XX0 Chronic gout, unspecified, without tophus (tophi); Z85.72 Personal history of non-Hodgkin lymphomas; E03.9 Hypothyroidism, unspecified

== ENCOUNTER → 2024-03-11 | Outpatient (CLI) | payer MEDICARE, BC ==
[~2024-03-11] MED LIST changes: +ONDA-282 PO; -ONDA4TAB6 PO
== END ==
LOC: M ONCR 09:51
PROVIDERS: ATTEND General Practice
DX: C83.34 Diffuse large B-cell lymphoma, lymph nodes of axilla and upper limb (principal); N62 Hypertrophy of breast; Z79.82 Long term (current) use of aspirin; Z79.899 Other long term (current) drug therapy; Z92.3 Personal history of irradiation

== ENCOUNTER → 2024-03-12 | Outpatient (CLI) | payer MEDICARE, BC ==
[2024-03-12 10:33] LABS: PROSTATIC SPECIFIC AG MONITOR 0.43 NG/ML (< 4.00)
== END ==
LOC: M PLALAB 08:15
PROVIDERS: ATTEND General Practice
DX: C85.10 Unspecified B-cell lymphoma, unspecified site (principal); R97.20 Elevated prostate specific antigen [PSA]

== ENCOUNTER → 2024-04-04 | Outpatient (REF) | payer MEDICARE, BC | LOC: M SFHCPLAZ 12:20 | PROVIDERS: ATTEND Family Medicine | DX: R30.0 Dysuria (principal) ==

== ENCOUNTER → 2024-05-26 | Outpatient (CLI) | payer MEDICARE, BC ==
[2024-05-26 18:00] LABS: THYROID STIMULATING HORMONE 2.469 uIU/ML (0.55-4.78)
== END ==
LOC: M PLALAB 14:54
PROVIDERS: ATTEND Family Medicine
DX: E03.9 Hypothyroidism, unspecified (principal); M1A.9XX0 Chronic gout, unspecified, without tophus (tophi)

== ENCOUNTER → 2024-09-09 | Outpatient (CLI) | payer MEDICARE, BC ==
[~2024-09-09] MED LIST changes: +TEST10GE TOP
== END ==
LOC: M ONCR 10:26
PROVIDERS: ATTEND General Practice
DX: C83.3A Diffuse large B-cell lymphoma, in remission (principal); E29.1 Testicular hypofunction; Z79.82 Long term (current) use of aspirin; Z79.890 Hormone replacement therapy; Z79.899 Other long term (current) drug therapy; Z92.21 Personal history of antineoplastic chemotherapy; Z92.3 Personal history of irradiation

== ENCOUNTER → 2025-01-16 | Outpatient (CLI) | payer MEDICARE, BC ==
[~2025-01-16] MED LIST changes: -FLOM0.4C39 PO; +TAMS-18 PO
[2025-01-16 11:39] LABS: VITAMIN B12 LEVEL 446.0 PG/ML (211-911)
== END ==
LOC: M PLALAB 08:31
PROVIDERS: ATTEND Family Medicine
DX: R53.83 Other fatigue (principal)

== ENCOUNTER → 2025-03-12 | Outpatient (CLI) | payer MEDICARE, BC | LOC: M ONCR 10:25 | PROVIDERS: ATTEND General Practice | DX: C83.34 Diffuse large B-cell lymphoma, lymph nodes of axilla and upper limb (principal); Z92.21 Personal history of antineoplastic chemotherapy; Z92.3 Personal history of irradiation; Z79.890 Hormone replacement therapy; Z79.82 Long term (current) use of aspirin; Z79.899 Other long term (current) drug therapy ==

== ENCOUNTER → 2025-04-15 | Outpatient (CLI) | payer MEDICARE, BC | LOC: M RAD 08:55 | PROVIDERS: ATTEND Internal Medicine Critical Care Medicine | DX: R91.8 Other nonspecific abnormal finding of lung field (principal) ==